=== PATIENT | male | born 1970 | race Caucasian/White ===

== ENCOUNTER 2017-01-27 12:58 | Emergency (ER) | payer SELFPAY ==
[~2017-01-27] VITALS: Ht 188 cm; Wt 99.3 kg
[~2017-01-27 12:58] MED LIST: LEVO25TA5 PO
[2017-01-27] MEDS ORDERED: KETOROLAC TROMETHAMINE 30 MG/ML VIAL IV STA (13:01)
[2017-01-27] MEDS ORDERED: ONDANSETRON INJ 2 MG/ML 2 ML VIAL IV STA (13:01)
[2017-01-27] MEDS ORDERED: FENTANYL CITRATE INJ 50 MCG/1 ML 2 ML VIAL IV STA (13:01)
[2017-01-27] MEDS ORDERED: SODIUM CHLORIDE 0.9% 1000ML 1,000 ML IV STA (13:01)
[2017-01-27 13:09] VITALS: TEMP 36.4; Ht 188 cm; Wt 99.3 kg
[2017-01-27 13:53] LABS: BASO % 0.3 %; BASO ABS # 0.02 K/uL (0-0.2); COMPLETE YES; EOS % 1.7 %; HEMATOCRIT 36.9 % (42-52); IG% 0.3 %; LYMPH % 21.1 %; LYMPH ABS # 1.26 K/uL (1.2-3.4); MEAN CELL VOLUME 103.7 fL (80-100); MEAN CORPUSCULAR HEMOGLOBIN 34.8 pg (25-34); MEAN CORPUSCULAR HGB CONC 33.6 g/dl (32-36); MEAN PLATELET VOLUME 9.4 fL (7.4-10.4); MONO % 5.7 %; NEUT % 70.9 %; PLATELET COUNT 140 K/uL (130-400); RED BLOOD COUNT 3.56 M/uL (4.7-6.1); WHITE BLOOD COUNT 5.98 K/uL (4.8-10.8)
--- NOTE | 2017-01-27 14:01 | DIAGNOSTIC IMAGING REPORT ---
ABD/PELVIS WITHOUT FOR STONE CT DOSE: 830.73 mGy.cm HISTORY: Flank pain flank pain TECHNIQUE: Multiaxial CT images of the abdomen and pelvis were performed without the use of intravenous and oral contrast according to the standard department stone protocol. A dose lowering technique was utilized adhering to the principles of ALARA. COMPARISON STUDY: 08/27/2014 FINDINGS: Mild bibasilar atelectatic/interstitial change. Liver spleen and pancreas are unremarkable. Bowel pattern is nonobstructive. Right kidney is negative for hydronephrosis. Gallbladder is moderately contracted. There is mild left hydroureteronephrosis. There is a 4 mm obstructing calculus mid left ureter. The appendix is normal. Bladder is midline. There are no contained calcifications. IMPRESSION: 1.. 4 mm obstructing calculus mid left ureter. 2. Mild left hydroureteronephrosis. 3. Study is otherwise negative. The above report was generated using voice recognition software. It may contain grammatical, syntax or spelling errors. Electronically signed by: Brody Jaffe M.D. 01/27/2017 2:00 PM Dictated Date/Time: 01/27/2017 1:56 PM
[2017-01-27 14:10] LABS: BUN/CREATININE RATIO 8.2 (10-20); CALCIUM 8.2 mg/dl (8.5-10.1); CREATININE 1.7 mg/dl (0.60-1.40); POTASSIUM 3.3 mmol/L (3.5-5.1)
[2017-01-27] MEDS ORDERED: TAMS0.4C38 PO (15:42)
[2017-01-27] MEDS ORDERED: OXYC-57 PO (15:42)
--- NOTE | 2017-01-27 15:43 | EMERGENCY ROOM VISIT NOTE ---
History Report prepared by Stan: Josiane Watson Under the Supervision of: Dr. Marco A Brito D.O. First contact with patient: 12:59 Stated Complaint: ABDOMINAL PAIN History of Present Illness The patient is a 46 year old male who presents to the Emergency Room with complaints of worsening LLQ pain starting this morning. He presents to the ED by EMS. He woke up around 0800 and had some discomfort. The pain worsened as he went about his daily routine. He also reports left testicle pain. He has a history of kidney stones which are normally on his right side. He does not have any other symptoms of kidney stones. Source of History: patient Onset: this morning Position: abdomen (LLQ) Quality: other (pain) Timing: worsening Note: Pt reports left testicle pain, left groin pain. Review of Systems See HPI for pertinent positives & negatives. A total of 10 systems reviewed and were otherwise negative. Past Medical & Surgical Medical Problems: (1) Back pain (2) Forearm laceration (3) Hypothyroidism (4) Pain, dental (5) Ureteral colic Family History FH: cancer FH: diabetes mellitus FH: heart disease FH: hypertension Social History Smoking Status: Never Smoker Alcohol Use: none Drug Use: none Marital Status: single Occupation Status: employed Current/Historical Medications Scheduled Levothyroxine Sodium (Levothyroxine Sodium), 25 MCG PO DAILY Tamsulosin Hcl (Flomax), 0.4 MG PO HS Scheduled PRN Oxycodone/Acetaminophen 5MG/325MG (Percocet 5MG/325MG), 1 TAB PO Q6H PRN for Pain Allergies Coded Allergies: No Known Allergies (Unverified , 03/13/16) Physical Exam Vital Signs Date Time Temp Pulse Resp B/P (MAP) Pulse Ox O2 Delivery O2 Flow Rate FiO2 01/27/17 16:25 60 15 143/87 96 01/27/17 15:17 58 12 122/78 95 Room Air 01/27/17 13:52 57 18 122/78 93 Room Air 01/27/17 13:09 36.4 67 18 123/77 98 Room Air 01/27/17 13:07 67 Physical Exam CONSTITUTIONAL/VITAL SIGNS: Reviewed / noted above. GENERAL: Non-toxic in appearance. INTEGUMENTARY: Warm, dry, and [place]. HEAD: Normocephalic. EYES: without scleral icterus or trauma. ENT/OROPHARYNX: clear and moist. LYMPHADENOPATHY/NECK: Is supple without lymphadenopathy or meningismus. RESPIRATORY: Lungs clear and equal. CARDIOVASCULAR: Regular rate and rhythm. GI/ABDOMEN: Soft with LLQ tenderness to palpation. No organomegaly or pulsatile mass. No rebound or guarding. Normal bowel sounds. : Left groin and left testicle tenderness to palpation. EXTREMITIES: Warm and well perfused. BACK: No CVA tenderness. NEUROLOGICAL: Intact without focal deficits. PSYCHIATRIC: normal affect. MUSCULOSKELETAL: Normally developed with good muscle tone. Medical Decision & Procedures ER Provider Diagnostic Interpretation: Radiology results as stated below per my review and radiologist interpretation: ABD/PELVIS WITHOUT FOR STONE CT DOSE: 830.73 mGy.cm HISTORY: Flank pain flank pain TECHNIQUE: Multiaxial CT images of the abdomen and pelvis were performed without the use of intravenous and oral contrast according to the standard department stone protocol. A dose lowering technique was utilized adhering to the principles of ALARA. COMPARISON STUDY: 08/27/2014 FINDINGS: Mild bibasilar atelectatic/interstitial change. Liver spleen and pancreas are unremarkable. Bowel pattern is nonobstructive. Right kidney is negative for hydronephrosis. Gallbladder is moderately contracted. There is mild left hydroureteronephrosis. There is a 4 mm obstructing calculus mid left ureter. The appendix is normal. Bladder is midline. There are no contained calcifications. IMPRESSION: 1.. 4 mm obstructing calculus mid left ureter. 2. Mild left hydroureteronephrosis. 3. Study is otherwise negative. The above report was generated using voice recognition software. It may contain grammatical, syntax or spelling errors. Electronically signed by: Brody Jaffe M.D. 01/27/2017 2:00 PM Dictated Date/Time: 01/27/2017 1:56 PM Laboratory Results 01/27/17 13:30 Red Blood Count 3.56, Mean Corpuscular Volume 103.7, Mean Corpuscular Hemoglobin 34.8, Mean Corpuscular Hemoglobin Concent 33.6, Mean Platelet Volume 9.4, Neutrophils (%) (Auto) 70.9, Lymphocytes (%) (Auto) 21.1, Monocytes (%) ( Auto) 5.7, Eosinophils (%) (Auto) 1.7, Basophils (%) (Auto) 0.3, Neutrophils # ( Auto) 4.24, Lymphocytes # (Auto) 1.26, Monocytes # (Auto) 0.34, Eosinophils # ( Auto) 0.10, Basophils # (Auto) 0.02 01/27/17 13:30 Test 01/27/17 13:30 White Blood Count 5.98 K/uL (4.8-10.8) Red Blood Count 3.56 M/uL (4.7-6.1) Hemoglobin 12.4 g/dL (14.0-18.0) Hematocrit 36.9 % (42-52) Mean Corpuscular Volume 103.7 fL (80-100) Mean Corpuscular Hemoglobin 34.8 pg (25-34) Mean Corpuscular Hemoglobin Concent 33.6 g/dl (32-36) Platelet Count 140 K/uL (130-400) Mean Platelet Volume 9.4 fL (7.4-10.4) Neutrophils (%) (Auto) 70.9 % Lymphocytes (%) (Auto) 21.1 % Monocytes (%) (Auto) 5.7 % Eosinophils (%) (Auto) 1.7 % Basophils (%) (Auto) 0.3 % Neutrophils # (Auto) 4.24 K/uL (1.4-6.5) Lymphocytes # (Auto) 1.26 K/uL (1.2-3.4) Monocytes # (Auto) 0.34 K/uL (0.11-0.59) Eosinophils # (Auto) 0.10 K/uL (0-0.5) Basophils # (Auto) 0.02 K/uL (0-0.2) RDW Standard Deviation 49.7 fL (36.4-46.3) RDW Coefficient of Variation 13.1 % (11.5-14.5) Immature Granulocyte % (Auto) 0.3 % Immature Granulocyte # (Auto) 0.02 K/uL (0.00-0.02) Anion Gap 8.0 mmol/L (3-11) Est Creatinine Clear Calc Drug Dose 67.7 ml/min Estimated GFR () 54.5 Estimated GFR (Non- 47.0 BUN/Creatinine Ratio 8.2 (10-20) Calcium Level 8.2 mg/dl (8.5-10.1) Total Bilirubin 0.6 mg/dl (0.2-1) Direct Bilirubin 0.1 mg/dl (0-0.2) Aspartate Amino Transf (AST/SGOT) 53 U/L (15-37) Alanine Aminotransferase (ALT/SGPT) 40 U/L (12-78) Alkaline Phosphatase 43 U/L (45-117) Total Protein 6.5 gm/dl (6.4-8.2) Albumin 3.4 gm/dl (3.4-5.0) Lipase 133 U/L (73-393) Laboratory results as stated above per my review. Medications Administered Medications (Trade) Dose Ordered Sig/Dashawn Route Start Time Stop Time Status Last Admin Dose Admin Sodium Chloride 1,000 ml @ 999 mls/hr Q1H1M STAT IV 01/27/17 13:01 01/27/17 14:01 DC 01/27/17 13:25 999 MLS/HR Fentanyl Citrate (Fentanyl Inj) 100 mcg NOW STAT IV 01/27/17 13:01 01/27/17 13:02 DC 01/27/17 13:24 100 MCG Ondansetron HCl (Zofran Inj) 4 mg NOW STAT IV 01/27/17 13:01 01/27/17 13:02 DC 01/27/17 13:25 4 MG Ketorolac Tromethamine (Toradol Inj) 30 mg NOW STAT IV 01/27/17 13:01 01/27/17 13:02 DC 01/27/17 13:25 30 MG Tamsulosin HCl (Flomax Cap) 0.4 mg NOW ONCE PO 01/27/17 15:45 01/27/17 15:46 DC 01/27/17 16:15 0.4 MG ED Course 1301: Toradol Inj 30 mg IV, Zofran Inj 4 mg IV, Fentanyl Citrate 100 mcg IV, NSS 1000 ml @ 999 mls/hr IV. 1309: Previous medical records were reviewed. The patient was evaluated in room B9. A complete history and physical examination was performed. 1545: Flomax Cap 0.4 mg PO. 1551: On reevaluation, the patient is resting comfortably. I discussed the results and findings with the patient. He verbalized agreement of the treatment plan. He was discharged home. Medical Decision Differential considered: pancreatitis, hepatitis, or acute cholecystitis, AAA, UTI, pyelonephritis, kidney stones, appendicitis, diverticulitis, shingles, bowel obstruction mesenteric ischemia, intussusception,hernia, testicular torsion. Is a 46-year-old male who presents to the ED with a chief complaint of left- sided abdominal pain that radiates into his testicle and groin. The patient states that the symptoms started around 8 AM this morning. He does report a history of kidney stones but states this feels different. His physical exam revealed some tenderness to palpation of the left lower quadrant as well as left groin and left testicle. He is no obvious swelling or abnormality related to the testicle. A CT scan of the abdomen pelvis reveals a 4 mm left mid ureteral calculus with some hydronephrosis. The CBC is unremarkable. Creatinine is 1.7. The patient was treated with IV fluids, IV Toradol and IV fentanyl. He was given IV fentanyl by EMS as well. On reassessment, the patient is feeling much better. His pain is a 2 out of 10. He was told the results. He is felt to be stable for discharge and outpatient follow-up. He was discharged on Flomax as well as Percocet. Urine strainer was provided. Medication Reconcilliation Current Medication List: was personally reviewed by me Blood Pressure Screening Patient's blood pressure: Normal blood pressure Blood pressure disposition: Did not require urgent referral Impression Primary Impression: Renal colic on left side Additional Impression: Ureteral stone with hydronephrosis Scribe Attestation The scribe's documentation has been prepared under my direction and personally reviewed by me in its entirety. I confirm that the note above accurately reflects all work, treatment, procedures, and medical decision making performed by me. Departure Information Dispostion Home / Self-Care Prescriptions Tamsulosin Hcl (FLOMAX) 0.4 Mg Cap 0.4 MG PO HS, #10 CAP Prov: Marco A Brito D.O. 01/27/17 Oxycodone/Acetaminophen 5MG/325MG (PERCOCET 5MG/325MG) Tab 1 TAB PO Q6H Y for Pain, #20 TAB Prov: Marco A Brito D.O. 01/27/17 Referrals Bello Marks M.D. (PCP) Additional Instructions Strain urine for stone. Percocet as prescribed. No driving within 6 hours of use. Do not take additional Tylenol while taking Percocet. Flomax as prescribed. Drink plenty of fluids. Follow-up with your doctor for recheck in 3-5 days if symptoms persist. Return here for severe worsening or new concerns. Problem Qualifiers
[2017-01-27] MEDS ORDERED: TAMSULOSIN HCL 0.4 MG CAP PO ONE (15:45)
[2017-01-27 16:25] VITALS: BP 143/87; PULSE 60; O2SAT 96
== END 2017-01-27 16:25 | disposition home or self-care (01) ==
LOC: EDBD 12:58 → C.EDB 12:59
DX: N23 Unspecified renal colic (principal); N13.2 Hydronephrosis with renal and ureteral calculous obstruction; E03.9 Hypothyroidism, unspecified; Z83.3 Family history of diabetes mellitus; Z82.49 Family history of ischemic heart disease and other diseases of the circulatory system

== ENCOUNTER 2017-02-01 14:57 | Emergency (ER) | payer SELFPAY ==
[~2017-02-01] VITALS: Ht 190.5 cm; Wt 100.0 kg
[~2017-02-01 14:57] MED LIST changes: +OXYC-57 PO; +TAMS0.4C38 PO
[2017-02-01 15:00] VITALS: TEMP 36.5; Ht 190.5 cm; Wt 100.0 kg
[2017-02-01] MEDS ORDERED: RXC/5 PO (15:05)
[2017-02-01] MEDS ORDERED: FLM4 PO (15:05)
[2017-02-01] MEDS ORDERED: TRAMADOL HCL 50 MG TAB PO STA ×2 (15:21→17:30)
[2017-02-01] MEDS ORDERED: SODIUM CHLORIDE 0.9% 1000ML 1,000 ML IV STA ×2 (15:21→16:07)
[2017-02-01] MEDS ORDERED: MoRPHine SULFATE 4 MG/ML 1 ML CARP\\VIAL IV STA (15:21)
[2017-02-01] MEDS ORDERED: KETOROLAC TROMETHAMINE 30 MG/ML VIAL IV STA (15:21)
--- NOTE | 2017-02-01 15:21 | EMERGENCY ROOM VISIT NOTE ---
History Report prepared by Stan: Benny Spain Under the Supervision of: Dr. Ky Huerta M.D. First contact with patient: 15:00 Chief Complaint: GROIN PAIN Stated Complaint: GROIN PAIN History of Present Illness The patient is a 46 year old white male with a past medical history of hypothyroidism and kidney stones who presents to the ED with a cc of worsening left groin pain beginning 2 hours ago. Positive left testicle pain, low back pain, hot and cold flashes. Negative urinary hesitancy, fullness, hematuria, testicle swelling, penile drainage, recent trauma. The patient says that his symptoms feel similar to his previous kidney stones, and he thinks that he passed this current kidney stone. He notes that he took 5 mg of oxycodone as well as Flexeril, but pain kept worsening and is still bad. Patient chews tobacco. Source of History: patient Onset: 2 hours ago Position: other (left groin) Quality: other (similar to previous kidney stones) Timing: worsening Associated Symptoms: + back pain (low), No urinary symptoms Note: Associated symptoms: Hot and cold flash, left testicle pain. Denies testicle swelling, penile drainage. Review of Systems See HPI for pertinent positives and negatives. A total of ten systems were reviewed and were otherwise negative. Past Medical & Surgical Medical Problems: (1) Back pain (2) Forearm laceration (3) Hypothyroidism (4) Pain, dental (5) Ureteral colic Family History FH: cancer FH: diabetes mellitus FH: heart disease FH: hypertension Social History Smoking Status: Never Smoker Smokeless Tobacco Use: Yes Alcohol Use: none Drug Use: none Marital Status: single Occupation Status: unemployed Current/Historical Medications Scheduled Levothyroxine Sodium (Levothyroxine Sodium), 25 MCG PO DAILY Ondasetron Odt (Zofran Odt), 4 MG SL Q6H Tamsulosin HCl (Tamsulosin HCl), 0.4 MG PO DAILY Tamsulosin Hcl (Flomax), 1 CAP PO DAILY Scheduled PRN Oxycodone HCl (Oxycodone HCl), 5 MG PO Q6 PRN for Pain Allergies Coded Allergies: No Known Allergies (Unverified , 02/01/17) Physical Exam Vital Signs Date Time Temp Pulse Resp B/P (MAP) Pulse Ox O2 Delivery O2 Flow Rate FiO2 02/01/17 17:51 66 18 145/88 97 9/19/17 16:23 67 18 136/91 96 Room Air 02/01/17 15:00 36.5 73 18 135/109 99 Room Air Physical Exam GENERAL: Awake, alert, well-appearing, NAD HENT: Normocephalic, atraumatic. EYES: Sclera non-icteric. RESPIRATORY: CTAB, no rhonchi, wheezing, crackles CARDIAC: RRR, no MRG ABDOMEN: Soft, BS+. Mild left-sided flank pain. No pain in peroneum area, no crepitus. MSK: Left-sided CVA TTP. No chest wall TTP, no LE edema : Mild left testicular pain w/o fluctuance, redness, or scrotal swelling. No masses. NEURO: GCS 15, CN 2-12 intact, moves all 4s on command SKIN: Areas of skin without pigment consistent with prior hx of vitiligo. Medical Decision & Procedures ER Provider Diagnostic Interpretation: CT: Radiology results as stated below per my review and radiologist interpretation ABD/PELVIS WITHOUT FOR STONE CT DOSE: 1343.93 mGy.cm HISTORY: Flank pain L ureteral stones, flank pain TECHNIQUE: Multiaxial CT images of the abdomen and pelvis were performed without the use of intravenous and oral contrast according to the standard department stone protocol. A dose lowering technique was utilized adhering to the principles of ALARA. COMPARISON STUDY: 01/27/2017 FINDINGS: Mild bibasilar dependent atelectasis. Configuration of liver spleen and pancreas are unremarkable. Right kidney is negative for calcification. Moderate left renal hydronephrosis and hydroureter. The obstructing calculus of the mid left ureter has now migrated distally to the distal left ureter immediately proximal to the left ureterovesical junction. Current dimensions are 5 mm. No additional urinary tract calcifications. Right ureter shows no evidence for distention. Bowel pattern is nonobstructive. IMPRESSION: 1. Previously described obstructing calculus mid left ureter has passed distally to the distal left ureter. 2. Stable to minimally increased left hydroureteronephrosis. The above report was generated using voice recognition software. It may contain grammatical, syntax or spelling errors. Electronically signed by: Brody Jaffe M.D. 02/01/2017 4:25 PM Dictated Date/Time: 02/01/2017 4:22 PM Laboratory Results 02/01/17 15:50 Red Blood Count 3.87, Mean Corpuscular Volume 102.8, Mean Corpuscular Hemoglobin 35.4, Mean Corpuscular Hemoglobin Concent 34.4, Mean Platelet Volume 9.1, Neutrophils (%) (Auto) 69.6, Lymphocytes (%) (Auto) 20.8, Monocytes (%) ( Auto) 6.6, Eosinophils (%) (Auto) 2.3, Basophils (%) (Auto) 0.5, Neutrophils # ( Auto) 3.98, Lymphocytes # (Auto) 1.19, Monocytes # (Auto) 0.38, Eosinophils # ( Auto) 0.13, Basophils # (Auto) 0.03 02/01/17 15:50 Test 02/01/17 15:50 02/01/17 16:55 White Blood Count 5.72 K/uL (4.8-10.8) Red Blood Count 3.87 M/uL (4.7-6.1) Hemoglobin 13.7 g/dL (14.0-18.0) Hematocrit 39.8 % (42-52) Mean Corpuscular Volume 102.8 fL (80-100) Mean Corpuscular Hemoglobin 35.4 pg (25-34) Mean Corpuscular Hemoglobin Concent 34.4 g/dl (32-36) Platelet Count 148 K/uL (130-400) Mean Platelet Volume 9.1 fL (7.4-10.4) Neutrophils (%) (Auto) 69.6 % Lymphocytes (%) (Auto) 20.8 % Monocytes (%) (Auto) 6.6 % Eosinophils (%) (Auto) 2.3 % Basophils (%) (Auto) 0.5 % Neutrophils # (Auto) 3.98 K/uL (1.4-6.5) Lymphocytes # (Auto) 1.19 K/uL (1.2-3.4) Monocytes # (Auto) 0.38 K/uL (0.11-0.59) Eosinophils # (Auto) 0.13 K/uL (0-0.5) Basophils # (Auto) 0.03 K/uL (0-0.2) RDW Standard Deviation 49.5 fL (36.4-46.3) RDW Coefficient of Variation 13.2 % (11.5-14.5) Immature Granulocyte % (Auto) 0.2 % Immature Granulocyte # (Auto) 0.01 K/uL (0.00-0.02) Anion Gap 7.0 mmol/L (3-11) Est Creatinine Clear Calc Drug Dose 64.2 ml/min Estimated GFR () 54.5 Estimated GFR (Non- 47.0 BUN/Creatinine Ratio 7.4 (10-20) Calcium Level 9.1 mg/dl (8.5-10.1) Total Bilirubin 0.8 mg/dl (0.2-1) Direct Bilirubin 0.1 mg/dl (0-0.2) Aspartate Amino Transf (AST/SGOT) 47 U/L (15-37) Alanine Aminotransferase (ALT/SGPT) 38 U/L (12-78) Alkaline Phosphatase 51 U/L (45-117) Total Protein 7.6 gm/dl (6.4-8.2) Albumin 4.0 gm/dl (3.4-5.0) Lipase 155 U/L (73-393) Urine Color YELLOW Urine Appearance CLEAR (CLEAR) Urine pH 6.0 (4.5-7.5) Urine Specific [place] 1.020 (1.000-1.030) Urine Protein NEG (NEG) Urine Glucose (UA) NEG (NEG) Urine Ketones NEG (NEG) Urine Occult Blood 3+ (NEG) Urine Nitrite NEG (NEG) Urine Bilirubin NEG (NEG) Urine Urobilinogen NEG (NEG) Urine Leukocyte Esterase NEG (NEG) Urine WBC (Auto) 1-5 /hpf (0-5) Urine RBC (Auto) >30 /hpf (0-4) Urine Hyaline Casts (Auto) 0 /lpf (0-5) Urine Epithelial Cells (Auto) 0-5 /lpf (0-5) Urine Bacteria (Auto) NEG (NEG) Laboratory results reviewed by me Medications Administered Medications (Trade) Dose Ordered Sig/Dashawn Route Start Time Stop Time Status Last Admin Dose Admin Sodium Chloride 1,000 ml @ 999 mls/hr Q1H1M STAT IV 02/01/17 15:21 02/01/17 16:21 DC 02/01/17 15:54 999 MLS/HR Morphine Sulfate (MoRPHine SULFATE INJ) 4 mg NOW STAT IV 02/01/17 15:21 02/01/17 15:25 DC 02/01/17 15:55 4 MG Tramadol HCl (Ultram Tab) 50 mg ONE STAT PO 02/01/17 15:21 02/01/17 15:25 DC 02/01/17 15:55 50 MG Ketorolac Tromethamine (Toradol Inj) 30 mg NOW STAT IV 02/01/17 15:21 02/01/17 15:25 DC 02/01/17 15:55 30 MG Sodium Chloride 1,000 ml @ 999 mls/hr Q1H1M STAT IV 02/01/17 16:07 02/01/17 17:07 DC 02/01/17 16:22 999 MLS/HR Acetaminophen/ Hydrocodone Bitart ([place] 5/325mg Home Pack) 1 homepack UD ONCE PO 02/01/17 17:30 02/01/17 17:32 DC 02/01/17 17:42 1 HOMEPACK Tramadol HCl (Ultram Home Pack) 1 homepack UD ONCE PO 02/01/17 17:30 02/01/17 17:32 DC 02/01/17 17:42 1 HOMEPACK ED Course 1513: The patient was evaluated in room B7. A complete history and physical exam was performed. 1: I reevaluated the patient and he is resting. The patient verbally expressed understanding and agreement of the treatment plan. The patient will be discharged. Medical Decision The patient is a 46 year old white male with a past medical history of hypothyroidism and kidney stones who presents to the ED with a cc of worsening left groin pain beginning 2 hours ago. Positive left testicle pain, low back pain, hot and cold flashes. Negative urinary hesitancy, fullness, hematuria, testicle swelling, penile drainage, recent trauma. Differential diagnosis: Etiologies such as renal colic, appendicitis, diverticulitis, mesenteric ischemia, aortic pathology, infections, inflammatory bowel disease, PUD, biliary pathology, UTI, as well as others were entertained. Patient seen and evaluated at the bedside. Patient had signed symptoms consistent with his prior irregular Rat[place] and nephrolithiasis. Patient is CT used to show movement or distally of the stone. Patient did have mild hydroureteronephrosis. Patient's kidney function is at his baseline from when he was here prior. Given the fact that he has had subsequent migration with a consistent creatinine at this point no further intervention. Patient does have history of insurance issues and thus is unable to follow up with the urologist. He was told he needs to maintain taking his Flomax on a daily basis and not just once in a while. Patient was given additional pain control. Patient given follow-up, discharge, and return cautions. Patient agreed w/ POC and patient was safely discharged home. Medication Reconcilliation Current Medication List: was personally reviewed by me Blood Pressure Screening Patient's blood pressure: Normal blood pressure Impression Primary Impression: Ureterolithiasis Additional Impressions: Encounter for smoking cessation counseling Flank pain Scribe Attestation The scribe's documentation has been prepared under my direction and personally reviewed by me in its entirety. I confirm that the note above accurately reflects all work, treatment, procedures, and medical decision making performed by me. Departure Information Dispostion Home / Self-Care Prescriptions Tamsulosin Hcl (FLOMAX) 0.4 Mg Cap 1 CAP PO DAILY for 30 Days, #30 CAP 0 Refills Prov: Ky Huerta M.D. 02/01/17 Ondasetron Odt (ZOFRAN ODT) 4 Mg Tab 4 MG SL Q6H for Nausea, #6 TAB Prov: Ky Huerta M.D. 02/01/17 Referrals Bello Marks M.D. (PCP) Francois Ibrahim M.D. Patient Instructions Kidney Stones, Kidney Stones - [facility], Kidney Stones Expectant Therapy, Kidney Stones Prevent, Kidney Stones Tx Meds, My [facility] Additional Instructions Please return to the emergency department if you have worsening or recurrent symptoms not amenable to at-home treatment. Please call for a follow-up appointment with her primary care physician. Please take your medications as prescribed. If you have other concerns and/or complaints please feel free to also call your primary care physician's office or return the ED for further evaluation, management, and treatment. You received narcotic or benzodiazepene medication while in the emergency room today. This is an addictive medication that may cause drowziness as well as constipation. Do not drive, operate heavy machinery, or drink alcohol under the influence of this medication. You may take 600 mg Ibuprofen every 6 hours as needed for pain with food for no more than 2 consecutive days. You may take tylenol 1000mg every 6 hours as needed for pain. You may take motrin and tylenol separately or at the same time. You have been examined and treated today on an emergency basis only. This is not a substitute for, or an effort to provide, complete comprehensive medical care. It is impossible to recognize and treat all injuries or illnesses in a single emergency department visit. It is therefore important that you follow up closely with [facility]. Call as soon as possible for an appointment. Thank you for your time and consideration. I look forward to speaking with you again soon. Please don't hesitate to call us if you have any questions. Work Instructions Return To Work: 1 day Problem Qualifiers
[2017-02-01 16:02] LABS: BASO % 0.5 %; BASO ABS # 0.03 K/uL (0-0.2); COMPLETE YES; EOS % 2.3 %; HEMATOCRIT 39.8 % (42-52); IG% 0.2 %; LYMPH % 20.8 %; LYMPH ABS # 1.19 K/uL (1.2-3.4); MEAN CELL VOLUME 102.8 fL (80-100); MEAN CORPUSCULAR HEMOGLOBIN 35.4 pg (25-34); MEAN CORPUSCULAR HGB CONC 34.4 g/dl (32-36); MEAN PLATELET VOLUME 9.1 fL (7.4-10.4); MONO % 6.6 %; NEUT % 69.6 %; PLATELET COUNT 148 K/uL (130-400); RED BLOOD COUNT 3.87 M/uL (4.7-6.1); WHITE BLOOD COUNT 5.72 K/uL (4.8-10.8)
[2017-02-01 16:18] LABS: BUN/CREATININE RATIO 7.4 (10-20); CALCIUM 9.1 mg/dl (8.5-10.1); CREATININE 1.7 mg/dl (0.60-1.40); POTASSIUM 3.9 mmol/L (3.5-5.1)
--- NOTE | 2017-02-01 16:27 | DIAGNOSTIC IMAGING REPORT ---
ABD/PELVIS WITHOUT FOR STONE CT DOSE: 1343.93 mGy.cm HISTORY: Flank pain L ureteral stones, flank pain TECHNIQUE: Multiaxial CT images of the abdomen and pelvis were performed without the use of intravenous and oral contrast according to the standard department stone protocol. A dose lowering technique was utilized adhering to the principles of ALARA. COMPARISON STUDY: 01/27/2017 FINDINGS: Mild bibasilar dependent atelectasis. Configuration of liver spleen and pancreas are unremarkable. Right kidney is negative for calcification. Moderate left renal hydronephrosis and hydroureter. The obstructing calculus of the mid left ureter has now migrated distally to the distal left ureter immediately proximal to the left ureterovesical junction. Current dimensions are 5 mm. No additional urinary tract calcifications. Right ureter shows no evidence for distention. Bowel pattern is nonobstructive. IMPRESSION: 1. Previously described obstructing calculus mid left ureter has passed distally to the distal left ureter. 2. Stable to minimally increased left hydroureteronephrosis. The above report was generated using voice recognition software. It may contain grammatical, syntax or spelling errors. Electronically signed by: Brody Jaffe M.D. 02/01/2017 4:25 PM Dictated Date/Time: 02/01/2017 4:22 PM
[2017-02-01 17:10] LABS: URINE APPEARANCE CLEAR (CLEAR); URINE BILIRUBIN NEG (NEG); URINE COLOR YELLOW; URINE EPITHELIAL CELL AUTO 0-5 /lpf (0-5); URINE NITRITE NEG (NEG); UROBILINOGEN NEG (NEG); ZZUR CULT IF INDIC CLEAN CATCH NO
[2017-02-01 17:11] LABS: MANUAL MICROSCOPIC REQUIRED? NO; REVIEW REQ? NO
[2017-02-01] MEDS ORDERED: ONDA4TAB10 SL (17:25)
[2017-02-01] MEDS ORDERED: TAMS0.4C38 PO (17:25)
[2017-02-01] MEDS ORDERED: OXYC1TAB3 PO (17:25)
[2017-02-01] MEDS ORDERED: ACET-749 PO (17:27)
[2017-02-01] MEDS ORDERED: TRAMADOL HCL 50 MG HOME PACK PO ONE (17:30)
[2017-02-01] MEDS ORDERED: HYDROCODONE/ACETAMI 10/325 TAB PO STA (17:30)
[2017-02-01] MEDS ORDERED: NORCO 5/325MG HOME PACK PO ONE (17:30)
[2017-02-01 17:51] VITALS: BP 145/88; PULSE 66; O2SAT 97
== END 2017-02-01 17:52 | disposition home or self-care (01) ==
LOC: EDBD 14:57 → C.EDB 14:59
DX: N20.1 Calculus of ureter (principal); N13.30 Unspecified hydronephrosis; R10.9 Unspecified abdominal pain; Z79.899 Other long term (current) drug therapy; F17.220 Nicotine dependence, chewing tobacco, uncomplicated

== ENCOUNTER 2017-02-10 22:27 | Inpatient (IN) | payer SELFPAY ==
[~2017-02-10] VITALS: Ht 190.5 cm; Wt 91.6 kg
[~2017-02-10 22:27] MED LIST changes: +FLM4 PO; +ONDA4TAB10 SL; -OXYC-57 PO; +RXC/5 PO
[2017-02-10] MEDS ORDERED: ONDANSETRON INJ 2 MG/ML 2 ML VIAL IV STA (22:53)
[2017-02-10] MEDS ORDERED: MoRPHine SULFATE 10 MG/ML CARP/VIAL IV STA (22:53)
[2017-02-10 23:12] LABS: MANUAL MICROSCOPIC REQUIRED? NO; REVIEW REQ? NO; URINE APPEARANCE CLEAR (CLEAR); URINE BILIRUBIN NEG (NEG); URINE COLOR YELLOW; URINE EPITHELIAL CELL AUTO 20-30 /lpf (0-5); URINE NITRITE NEG (NEG); URINE SPECIFIC GRAVITY 1.023 (1.000-1.030); UROBILINOGEN NEG (NEG); ZZUR CULT IF INDIC CLEAN CATCH NO
[2017-02-10 23:13] LABS: BASO % 0.2 %; BASO ABS # 0.02 K/uL (0-0.2); COMPLETE YES; EOS % 1.7 %; HEMATOCRIT 40.4 % (42-52); IG% 0.1 %; LYMPH % 13.1 %; LYMPH ABS # 1.23 K/uL (1.2-3.4); MEAN CELL VOLUME 101.5 fL (80-100); MEAN CORPUSCULAR HEMOGLOBIN 34.2 pg (25-34); MEAN CORPUSCULAR HGB CONC 33.7 g/dl (32-36); MEAN PLATELET VOLUME 9.2 fL (7.4-10.4); MONO % 6.1 %; NEUT % 78.8 %; PLATELET COUNT 152 K/uL (130-400); RED BLOOD COUNT 3.98 M/uL (4.7-6.1); WHITE BLOOD COUNT 9.39 K/uL (4.8-10.8)
[2017-02-10 23:39] LABS: BUN/CREATININE RATIO 7.2 (10-20); CREATININE 2.1 mg/dl (0.60-1.40); POTASSIUM 3.9 mmol/L (3.5-5.1)
[2017-02-10 23:41] LABS: ALB/GLOB RATIO 1.1 (0.9-2)
[2017-02-10] MEDS ORDERED: TRAM-10 PO (23:45)
[2017-02-10] MEDS ORDERED: ONDA4TAB10 SL (23:45)
[2017-02-11] VITALS (9 sets, daily range): BP systolic 131–154; BP diastolic 86–99; PULSE 60–78; TEMP 36.3–37; O2SAT 93–96; Ht 190.5 cm; Wt 91.6 kg
[2017-02-11] MEDS ORDERED: ALUMINUM/MAGNESIUM/SIMETH (MAALOX MAX) 30 ML UDC PO PRN (01:45)
[2017-02-11] MEDS ORDERED: MAGNESIUM HYDROXIDE SUSP 30 ML UDC PO PRN (01:45)
[2017-02-11] MEDS ORDERED: ACETAMINOPHEN 325 MG TAB PO PRN (01:45)
[2017-02-11] MEDS ORDERED: SODIUM CHLORIDE 0.9% 1000ML 1,000 ML IV STA (02:01)
--- NOTE | 2017-02-11 02:06 | History and Physical ---
History & Physical Date & Time of Service: Feb 11, 2017 at 01:51 Chief Complaint: Kidney Stone On Lf Side Primary Care Physician: Bello Marks M.D. History of Present Illness Source: patient, family (mother) The patient is a nick 46 year old male with a history of hypothyroidism and renal stones who presents with acute abdominal pain. The patient reports having sudden onset abdominal pain at 4am yesterday. He describes the pain as sharp in the LLQ and radiates in to the leg groin and testicle. He denies dysuria or urinary frequency. States that his urine has appeared more concentrated but not grossly bloody. He denies any accompanying back pain. He has not had fevers, chills or sweats. He denies, nausea or vomiting. He denies any diarrhea, constipation or changes in stooling. This patient has a known renal stone on the left side. He presented to [facility] on 01/27 with similar pain. At that time a CT scan was done showing a 0.4 cm left ureteral stone with mild hydronephrosis. He was offered admission and evaluation but declined due to lack of insurance and was discharged with pain medication, and Flomax. He returned again on 02/01 with similar complaints and repeat CT showed migration to distal ureter. He was discharged home at that time as well. Tonight in the ED, renal ultrasound reported renal stone in the left UVJ and size was reported as 1.1 cm. He Cr was noted to be 2.1 (at his previous visits this month they were 1.7) and Cr last year was 1.1). He is being admitted for evaluation and treatment of renal stone. The patient states that he does not have insurance and as a result has not been taking his thyroid medication because he cannot afford it. Past Medical/Surgical History Medical Problems: (1) Back pain Status: Resolved (2) Forearm laceration Status: Resolved (3) Hypothyroidism Status: Chronic (4) Pain, dental Status: Resolved (5) Ureteral colic Status: Resolved Family History FH: cancer FH: diabetes mellitus FH: heart disease FH: hypertension Social History Smoking Status: Never Smoker Smokeless Tobacco Use: Yes (Chewing tobacco daily) Alcohol Use: none Drug Use: none Marital Status: single Housing status: lives with family Occupational Status: unemployed Multi-Drug Resistant Organisms History of MDRO: No Allergies Coded Allergies: No Known Allergies (Unverified , 02/10/17) Home Medications Scheduled Levothyroxine Sodium (Levothyroxine Sodium), 25 MCG PO DAILY Tamsulosin HCl (Tamsulosin HCl), 0.4 MG PO DAILY Scheduled PRN Ondasetron Odt (Zofran Odt), 4 MG SL Q6H PRN for Nausea or Vomiting Oxycodone HCl (Oxycodone HCl), 5 MG PO Q6 PRN for Pain Tramadol (Ultram), 50 MG PO Q8H PRN for Pain Review of Systems Constitutional: No fever, No chills, No sweats ENT: No unusual epistaxis, No nasal symptoms, No sore throat Respiratory: No cough, No sputum, No wheezing Cardiovascular: No chest pain, No claudication, No palpitations Abdomen: + pain, No nausea, No vomiting Musculoskeletal: No joint pain, No muscle pain, No swelling Genitourinary - Male: No hematuria, No dysuria, No urinary frequency Neurologic: No weakness, No numbness/tingling, No vertigo Psychiatric: No depression symptoms, No anxiety, No insomnia Endocrine: No fatigue, No excessive urination Hematologic / Lymphatic: No clotting problems, No swollen lymph nodes, No night sweats Integumentary: No rash, No new/changing skin lesions, No color change Physical Exam Vital Signs Date Time Temp Pulse Resp B/P (MAP) Pulse Ox O2 Delivery O2 Flow Rate FiO2 02/11/17 00:52 37.1 67 18 131/94 93 Room Air 02/10/17 23:00 64 02/10/17 22:35 36.4 69 16 151/97 96 Room Air General Appearance: WD/WN, no apparent distress Head: normocephalic, atraumatic Eyes: normal inspection, EOMI ENT: hearing grossly normal, pharynx normal Neck: supple, no adenopathy, no JVD Respiratory/Chest: lungs clear, no respiratory distress Cardiovascular: regular rate, rhythm, no gallop, no murmur Abdomen/GI: normal bowel sounds, soft, + pertinent finding (LLQ tenderness, without guarding or rigidity) Back: no CVA tenderness, no muscle spasm Extremities/Musculoskelatal: no calf tenderness, no pedal edema Neurologic/Psych: alert, normal mood/affect, oriented x 3 Skin: normal color, warm/dry, no rash Lymphatic: no adenopathy Diagnostics Laboratory Results Results Past 24 Hours Test 02/10/17 22:50 02/10/17 23:00 Range/Units Urine Color YELLOW Urine Appearance CLEAR CLEAR Urine pH 7.0 4.5-7.5 Urine Specific [place] 1.023 1.000-1.030 Urine Protein NEG NEG Urine Glucose (UA) NEG NEG Urine Ketones NEG NEG Urine Occult Blood 2+ NEG Urine Nitrite NEG NEG Urine Bilirubin NEG NEG Urine Urobilinogen NEG NEG Urine Leukocyte Esterase NEG NEG Urine WBC (Auto) 1-5 0-5 /hpf Urine RBC (Auto) 10-30 0-4 /hpf Urine Hyaline Casts (Auto) 1-5 0-5 /lpf Urine Epithelial Cells (Auto) 20-30 0-5 /lpf Urine Bacteria (Auto) NEG NEG White Blood Count 9.39 4.8-10.8 K/uL Red Blood Count 3.98 4.7-6.1 M/uL Hemoglobin 13.6 14.0-18.0 g/dL Hematocrit 40.4 42-52 % Mean Corpuscular Volume 101.5 80-100 fL Mean Corpuscular Hemoglobin 34.2 25-34 pg Mean Corpuscular Hemoglobin Concent 33.7 32-36 g/dl Platelet Count 152 130-400 K/uL Mean Platelet Volume 9.2 7.4-10.4 fL Neutrophils (%) (Auto) 78.8 % Lymphocytes (%) (Auto) 13.1 % Monocytes (%) (Auto) 6.1 % Eosinophils (%) (Auto) 1.7 % Basophils (%) (Auto) 0.2 % Neutrophils # (Auto) 7.40 1.4-6.5 K/uL Lymphocytes # (Auto) 1.23 1.2-3.4 K/uL Monocytes # (Auto) 0.57 0.11-0.59 K/uL Eosinophils # (Auto) 0.16 0-0.5 K/uL Basophils # (Auto) 0.02 0-0.2 K/uL RDW Standard Deviation 49.6 36.4-46.3 fL RDW Coefficient of Variation 13.2 11.5-14.5 % Immature Granulocyte % (Auto) 0.1 % Immature Granulocyte # (Auto) 0.01 0.00-0.02 K/uL Sodium Level 140 136-145 mmol/L Potassium Level 3.9 3.5-5.1 mmol/L Chloride Level 106 98-107 mmol/L Carbon Dioxide Level 27 21-32 mmol/L Anion Gap 7.0 3-11 mmol/L Blood Urea Nitrogen 15 7-18 mg/dl Creatinine 2.10 0.60-1.40 mg/dl Est Creatinine Clear Calc Drug Dose 52.0 ml/min Estimated GFR () 42.2 Estimated GFR (Non- 36.4 BUN/Creatinine Ratio 7.2 10-20 Random Glucose 94 70-99 mg/dl Calcium Level 10.0 8.5-10.1 mg/dl Total Bilirubin 0.8 0.2-1 mg/dl Aspartate Amino Transf (AST/SGOT) 40 15-37 U/L Alanine Aminotransferase (ALT/SGPT) 39 12-78 U/L Alkaline Phosphatase 56 45-117 U/L Total Protein 8.0 6.4-8.2 gm/dl Albumin 4.2 3.4-5.0 gm/dl Globulin 3.8 2.5-4.0 gm/dl Albumin/Globulin Ratio 1.1 0.9-2 Diagnostic Radiology Left UVJ 1.1 cm stone Hydronephrosis Right kidney normal Impression Assessment and Plan 46 year old male with elevated left obstructing renal stone and JEFF. Our plan for him is as follows: Left renal tract stone with hydronephrosis - NPO - Consult urology - NSS bolus --> follow with NSS + 20 KCl @ 125 ml/hr - Morphine 4 mg q4h Acute Kidney Injury - Cr 2.1; baseline 1.0 - Dehydration vs obstructive - Will fluid challenge as above and re-assess renal function in 12 hours Hypothyroidism - Patient not taking medications - TSH with tomorrow's labs and re-start medication accordingly DVT Prophylaxis - SCD Knee, EUNICE Hose - Encourage ambulation; no indication for pharmacological prophylaxis Code Status - Level I Full Code Disposition - Med/Surg - Patient will require assistance from case management to get insurance Resident Physician Supervision Note: I was present with Dr Gracia during the history and exam. I discussed the case with the resident and agree with the findings and plan as documented in the note. Any exceptions or clarifications are listed here: 46 y/o M Hx hypothyroidism - medical noncompliance - previous ureteral calculi - presenting with L flank/back pain CT reveals 1.1 cm obstructive calculus - UA is (-) - creatinine elevated at 2.1 OE AAO x 3 S1,2 R CTAB NT, ND No CCE P: Aggressive IVF - trend BMP Urology consulted as spontaneous passage is not likely Will check TSH as pt has not complied with Synthroid - restarted Documented By: Tai Leyva Level of Care Med/Surg Resuscitation Status FULL RESUSCITATION VTE Prophylaxis VTE Risk Assessment Done? Y/N: Yes Risk Level: Moderate Given or contraindicated: T.E.D. Stockings, SCD's
[2017-02-11] MEDS ORDERED: POLYETHYLENE (MIRALAX) 17 GM PACK PO PRN (02:30)
[2017-02-11] MEDS: ONDANSETRON INJ 2 MG/ML 2 ML VIAL IV PRN ×2 (02:33→10:35)
[2017-02-11] MEDS: MoRPHine SULFATE 4 MG/ML 1 ML CARP\\VIAL IV PRN ×2 (02:33→10:36)
[2017-02-11] MEDS: NSS + 20MEQ KCL 1000ML 1,000 ML IV SCH ×3 (03:15→18:38)
--- NOTE | 2017-02-11 07:02 | DIAGNOSTIC IMAGING REPORT ---
EXAMINATION: RENAL ULTRASOUND CLINICAL HISTORY: Left ureteral calculus. Evaluate for hydronephrosis. COMPARISON STUDY: CT scan dated 02/01/2017, renal ultrasound dated 03/13/2016 FINDINGS: The right kidney measures 10.6 cm. The left kidney measures 11.5 cm. There is left-sided hydronephrosis. The left ureter is dilated measuring up to 7 mm. There is a suspected calculus at the level the left ureterovesical junction. This measures 1 cm. The left ureteral jet was not visualized. IMPRESSION : 1 cm calculus at the level of the left ureterovesical junction with secondary left-sided hydroureteronephrosis. Electronically signed by: Emiliano Huitron M.D. 02/11/2017 7:01 AM Dictated Date/Time: 02/11/2017 6:59 AM
--- NOTE | 2017-02-11 07:13 | DIAGNOSTIC IMAGING REPORT ---
KUB CLINICAL HISTORY: 46 years-old Male presenting with Left ureteral calculi on previous CTs. TECHNIQUE: Single supine view of the abdomen was obtained. COMPARISON: 03/13/2016. FINDINGS: Previously noted calculus in the region of the distal left ureter remains apparent in the region of the left ureterovesical junction. This has not changed in location. No calcification projects over the renal shadows allowing for mild stool burden in the right colon. No gross pneumoperitoneum. Osseous structures normal. IMPRESSION: 1. Stable location of the distal left ureteral calculus at the left UVJ. Electronically signed by: Griffin Benavides M.D. 02/11/2017 7:12 AM Dictated Date/Time: 02/11/2017 7:10 AM
--- NOTE | 2017-02-11 10:39 | Urology Consultation ---
History General Date of Service: Feb 11, 2017. Primary Care Physician: Bello Marks M.D. History of Present Illness 46 year old male admitted with large left distal ureteral stone. Pt reports history of stones but has been able to pass most on his own. He reports the pain started a few days ago but worsened last night causing intractable pain and nausea. Reviewed KUB and renal u/s images. Appears to have 1 cm obstructing left distal stone causing hydronephrosis. pt continues to have left sided pain. Denies hematuria or bothersome urinary symptoms. White count is normal. Creatinine is elevated -2.10 Afebrile, VSS. Imaging Imaging: KUB, Ultrasound Laboratory Last 24 Hours Test 02/10/17 22:50 02/10/17 23:00 Urine Color YELLOW Urine Appearance CLEAR Urine pH 7.0 Urine Specific [place] 1.023 Urine Protein NEG Urine Glucose (UA) NEG Urine Ketones NEG Urine Occult Blood 2+ Urine Nitrite NEG Urine Bilirubin NEG Urine Urobilinogen NEG Urine Leukocyte Esterase NEG Urine WBC (Auto) 1-5 /hpf Urine RBC (Auto) 10-30 /hpf Urine Hyaline Casts (Auto) 1-5 /lpf Urine Epithelial Cells (Auto) 20-30 /lpf Urine Bacteria (Auto) NEG White Blood Count 9.39 K/uL Red Blood Count 3.98 M/uL Hemoglobin 13.6 g/dL Hematocrit 40.4 % Mean Corpuscular Volume 101.5 fL Mean Corpuscular Hemoglobin 34.2 pg Mean Corpuscular Hemoglobin Concent 33.7 g/dl Platelet Count 152 K/uL Mean Platelet Volume 9.2 fL Neutrophils (%) (Auto) 78.8 % Lymphocytes (%) (Auto) 13.1 % Monocytes (%) (Auto) 6.1 % Eosinophils (%) (Auto) 1.7 % Basophils (%) (Auto) 0.2 % Neutrophils # (Auto) 7.40 K/uL Lymphocytes # (Auto) 1.23 K/uL Monocytes # (Auto) 0.57 K/uL Eosinophils # (Auto) 0.16 K/uL Basophils # (Auto) 0.02 K/uL RDW Standard Deviation 49.6 fL RDW Coefficient of Variation 13.2 % Immature Granulocyte % (Auto) 0.1 % Immature Granulocyte # (Auto) 0.01 K/uL Sodium Level 140 mmol/L Potassium Level 3.9 mmol/L Chloride Level 106 mmol/L Carbon Dioxide Level 27 mmol/L Anion Gap 7.0 mmol/L Blood Urea Nitrogen 15 mg/dl Creatinine 2.10 mg/dl Est Creatinine Clear Calc Drug Dose 52.0 ml/min Estimated GFR () 42.2 Estimated GFR (Non- 36.4 BUN/Creatinine Ratio 7.2 Random Glucose 94 mg/dl Calcium Level 10.0 mg/dl Total Bilirubin 0.8 mg/dl Aspartate Amino Transf (AST/SGOT) 40 U/L Alanine Aminotransferase (ALT/SGPT) 39 U/L Alkaline Phosphatase 56 U/L Total Protein 8.0 gm/dl Albumin 4.2 gm/dl Globulin 3.8 gm/dl Albumin/Globulin Ratio 1.1 Current Inpatient Medications Medications (Trade) Dose Ordered Sig/Dashawn Route Start Time Stop Time Status Last Admin Dose Admin Acetaminophen (Tylenol Tab) 650 mg Q4H PRN PO 02/11/17 01:45 03/13/17 01:44 Al Hydrox/Mg Hydrox/Simethicone (Maalox Max Susp) 15 ml Q4H PRN PO 02/11/17 01:45 03/13/17 01:44 Magnesium Hydroxide (Milk Of Magnesia Susp) 30 ml Q6H PRN PO 02/11/17 01:45 03/13/17 01:44 Polyethylene (Miralax Powder Packet) 17 gm DAILY PRN PO 02/11/17 02:30 03/13/17 02:29 Ondansetron HCl (Zofran Inj) 4 mg Q6H PRN IV 02/11/17 01:45 03/13/17 01:44 02/11/17 02:33 4 MG Potassium Chloride/Sodium Chloride 1,000 ml @ 125 mls/hr Q8H IV 02/11/17 03:00 03/13/17 02:59 02/11/17 03:15 125 MLS/HR Morphine Sulfate (MoRPHine SULFATE INJ) 4 mg Q4H PRN IV 02/11/17 01:45 02/25/17 01:44 02/11/17 02:33 4 MG Tamsulosin HCl (Flomax Cap) 0.4 mg DAILY PO 02/11/17 09:00 03/13/17 08:59 Labs were reviewed and are within normal limits unless listed below. Labs are available in the chart and at [facility] Problem List Medical Problems: (1) Encounter for smoking cessation counseling Status: Acute (2) Flank pain Status: Acute (3) Hypothyroidism Status: Chronic (4) Left ureteral calculus Status: Acute (5) Renal colic on left side Status: Acute (6) Renal colic on left side Status: Acute (7) Ureteral stone with hydronephrosis Status: Acute (8) Ureterolithiasis Status: Acute Past History hypothyroidism, kidney stones Family History FH: cancer FH: diabetes mellitus FH: heart disease FH: hypertension Social History Marital status: single Housing status: lives with family Occupation status: unemployed History of MDRO No Allergies Coded Allergies: No Known Allergies (Unverified , 02/10/17) Medications Home Medications: Home Meds and Scripts Medications Dose Route/Sig Max Daily Dose Days Date Category Ultram (Tramadol HCl) 50 Mg Tab 50 Mg PO Q8H PRN 02/10/17 Reported Zofran Odt (Ondansetron HCl) 4 Mg Tab 4 Mg SL Q6H PRN 02/10/17 Reported Oxycodone HCl 5 Mg Tab 5 Mg PO Q6 PRN 02/01/17 Reported Tamsulosin HCl 0.4 Mg Cap 0.4 Mg PO DAILY 02/01/17 Reported Levothyroxine Sodium 25 Mcg Tab 25 Mcg PO DAILY 01/02/15 Reported Inpatient Medications: Current Inpatient Medications Medications (Trade) Dose Ordered Sig/Dashawn Route Start Time Stop Time Status Last Admin Dose Admin Acetaminophen (Tylenol Tab) 650 mg Q4H PRN PO 02/11/17 01:45 03/13/17 01:44 Al Hydrox/Mg Hydrox/Simethicone (Maalox Max Susp) 15 ml Q4H PRN PO 02/11/17 01:45 03/13/17 01:44 Magnesium Hydroxide (Milk Of Magnesia Susp) 30 ml Q6H PRN PO 02/11/17 01:45 03/13/17 01:44 Polyethylene (Miralax Powder Packet) 17 gm DAILY PRN PO 02/11/17 02:30 03/13/17 02:29 Ondansetron HCl (Zofran Inj) 4 mg Q6H PRN IV 02/11/17 01:45 03/13/17 01:44 02/11/17 02:33 4 MG Potassium Chloride/Sodium Chloride 1,000 ml @ 125 mls/hr Q8H IV 02/11/17 03:00 03/13/17 02:59 02/11/17 03:15 125 MLS/HR Morphine Sulfate (MoRPHine SULFATE INJ) 4 mg Q4H PRN IV 02/11/17 01:45 02/25/17 01:44 02/11/17 02:33 4 MG Tamsulosin HCl (Flomax Cap) 0.4 mg DAILY PO 02/11/17 09:00 03/13/17 08:59 Review of Systems Review of Systems Constitutional: No fever, No chills Eyes: No blurred vision Neurological: No dizzy Endocrine: No excessive thirst Gastrointestinal: + see HPI, + nausea Cardiovascular: No heart murmur, No chest pain Respiratory: No shortness of breath, No wheezing Skin: No rash Musculoskeletal: No joint pain Blood / Lymphatic: No bleed easily Ears / Nose / Throat: No hearing loss Psychologic / Mental: No nervous Male : + see HPI Physical Exam Vital Signs: Vital Signs Past 12 Hours Date Time Temp Pulse Resp B/P (MAP) Pulse Ox O2 Delivery O2 Flow Rate FiO2 02/11/17 07:37 Room Air 02/11/17 06:56 36.4 62 18 131/86 (101) 96 Room Air 02/11/17 02:20 Room Air 02/11/17 02:20 Room Air 02/11/17 02:15 36.4 60 17 136/99 (111) 95 Room Air 02/11/17 02:07 37.2 62 16 139/82 95 02/11/17 00:52 37.1 67 18 131/94 93 Room Air 02/10/17 23:00 64 02/10/17 22:35 36.4 69 16 151/97 96 Room Air Physical Exam: General Appearance: WD/WN, no apparent distress Eyes: bilateral eyes normal inspection (bilateral pinpoint pupils) ENT: hearing grossly normal Neck: no JVD Respiratory/Chest: lungs clear, normal breath sounds, no respiratory distress, no accessory muscle use Cardiovascular: regular rate, rhythm, no edema, no gallop, no JVD, no murmur Gastrointestinal: Abdomen: normal abdomen Extremities: normal range of motion, non-tender Neurologic/Psychiatric: alert, normal mood/affect, oriented x 3 Skin: normal color, warm/dry, no rash Lymphatic: no adenopathy Assessment & Plan Assessment & Plan Large left distal ureteral stone and ARF KUB and renal u/s reveal large obstructing left UVJ stone. Given the size of the stone recommend proceeding with surgery as it is unlikely he will pass on his own. ESWL vs ULL- Given he is still having left sided pain will proceed with cystoscopy, left ureteroscopy, laser litho with stent placement. Discussed risks, benefits and answered all questions. Consents signed and placed on chart and operating room notified of add on. Will obtain CXR and EKG preop. Cipro 400 mg IV production supv to OR. Thanks for allowing us to participate in the care of this pt.
[2017-02-11] MEDS ORDERED: CIPROFLOXACIN 400MG / D5W IV SCH (11:00)
--- NOTE | 2017-02-11 11:59 | DIAGNOSTIC IMAGING REPORT ---
CHEST 2 VIEWS ROUTINE CLINICAL HISTORY: Preoperative chest NEPHROLITHIASIS COMPARISON STUDY: 01/18/2011 FINDINGS: The cardiac and mediastinal contours are normal. There is no evidence of focal pulmonary consolidation. There is no evidence of failure. No pleural effusions are visualized.[ Linear opacities at both lung bases are felt to be atelectatic. IMPRESSION: Subsegmental basilar atelectasis. No active disease in the chest.. Electronically signed by: Emiliano Huitron M.D. 02/11/2017 11:57 AM Dictated Date/Time: 02/11/2017 11:57 AM
[2017-02-11 12:38] LABS: BUN/CREATININE RATIO 6.4 (10-20); CALCIUM 9.1 mg/dl (8.5-10.1); CREATININE 2.3 mg/dl (0.60-1.40); POTASSIUM 4.3 mmol/L (3.5-5.1)
[2017-02-11] MEDS ORDERED: CONRAY 30% 150ML BOTTLE ONE (12:47)
[2017-02-11] MEDS ORDERED: FENTANYL CITRATE INJ 50 MCG/1 ML 2 ML VIAL ONE (12:56)
[2017-02-11] MEDS ORDERED: PROPOFOL IV EMULSION 10 MG/ML 20 ML VIAL IV ONE (12:56)
[2017-02-11] MEDS ORDERED: LIDOCAINE HCL 2% 2 ML VIAL (20MG/ML) ONE (12:56)
[2017-02-11] MEDS ORDERED: DEXAMETHASONE SOD INJ 4 MG/ML VIAL ONE (12:56)
[2017-02-11] MEDS ORDERED: MIDAZOLAM HCL 1 MG/ML 2ML VIAL ONE (12:56)
[2017-02-11] MEDS ORDERED: ONDANSETRON INJ 2 MG/ML 2 ML VIAL ONE (12:56)
[2017-02-11] MEDS ORDERED: ATROPINE SULFATE 0.1 MG/ML 5ML SYR IV PRN (14:00)
[2017-02-11] MEDS ORDERED: EpHEDrine SULFATE INJ 50 MG/ML AMP IV PRN (14:00)
[2017-02-11] MEDS ORDERED: ONDANSETRON INJ 2 MG/ML 2 ML VIAL IV PRN (14:00)
[2017-02-11] MEDS ORDERED: FENTANYL CITRATE INJ 50 MCG/1 ML 2 ML VIAL IV PRN (14:00)
--- NOTE | 2017-02-11 14:02 | History & Physical Bridge Note ---
H&P Re-Evaluation Bridge Note: I have examined the patient, reviewed the History & Physical and in the interval since the performance of the History & Physical I have noted the following changes of clinical significance: No changes noted
--- NOTE | 2017-02-11 14:58 | [facility] Operative Report ---
Operative Report Operative Date Feb 11, 2017. Pre-Operative Diagnosis Left Ureteral Stone Post-Operative Diagnosis Same as preop Procedure(s) Performed Cystoscopy; Laser Lithotripsy Holmium, Laser ureteral Meatotomy, Stone Extraction; Placement of Left Stent ([id number]) Surgeon Dr. La Electrician Second Surgeon(s) none Estimated Blood Loss 0 ml Findings Distal left ureteral stone impacted at the UO. Specimens A. Ureteral Stone for Chemical Analysis Drains [id number] stent Anesthesia Gen Complication(s) None Disposition Recovery Room / PACU (stable) Indications Symptomatic L ureteral stone Description of Procedure Reilly Loza was admitted through the emergency room secondary to renal colic from a left distal ureteral calculus. Following urologic consultation, appropriate consents were reviewed and completed and the patient was prepared for the operating room. He received appropriate preoperative antibiotics in the form of ciprofloxacin. Adequate general anesthesia was achieved, and he was placed in dorsal lithotomy position and sterilely prepped and draped in standard fashion. I began the case by passing a 22 Chadian cystoscope with 30 lens. The urethra had no evidence of stricture disease. Prostate was moderately enlarged without obstruction. Inspection of the bladder revealed no evidence of mucosal abnormalities or tumors. Ureteral orifices were in orthotopic position, and a stone was seen protruding from the left UO. Following this inspection, my initial effort was made to deliver the stone by utilizing gentle pressure with a 6 Chadian ureteral catheter on the area of the intramural ureter immediately posterior to the stone. The stone did not pass with this attempt. I attempted to probe along size of the stone attempting to pass a wire into the ureter, however his degree of impaction would not permit a wire to pass it. After numerous attempts, I turned my attention to the stretched tissue over top of the stone. Utilizing a 400 laser, I was able to incise the anterior portion of this ureteral orifice creating a ureteral meatotomy. This exposed a significant portion of the stone. I fragment in the stone into 2 pieces. With a flexible grasper, I was able to grasp the stones and deliver them. I then passed a 6 [place] open-ended catheter and a sensor wire to the level of the kidney. I performed a retrograde pyelogram which revealed minimal hydronephrosis and an appropriate position of the wire within the kidney. I placed a 6 Ch[place] by 26cm double-J stent, seeing a good curl in the kidney as well as the bladder. I irrigated the stone pieces out of the bladder and passed them off of the table. I emptied the bladder and concluded the case. The patient was extubated and taken to the PACU in stable condition. I attest to the content of the Intraoperative Record and any orders documented therein. Any exceptions are noted below.
--- NOTE | 2017-02-11 15:29 | Anesthesiology Progress Note ---
Anesthesia Post Op Note Date & Time Feb 11, 2017 at 15:29 Vital Signs Pain Intensity: 0 Vital Signs Past 12 Hours Date Time Temp Pulse Resp B/P (MAP) Pulse Ox O2 Delivery O2 Flow Rate FiO2 02/11/17 15:20 65 12 /92 94 Nasal Cannula 3 02/11/17 15:10 67 12 117/92 96 Oxymask 12 02/11/17 15:00 73 15 115/87 95 Oxymask 12 02/11/17 14:54 36.1 74 16 125/90 94 Oxymask 12 02/11/17 12:03 36.4 63 18 153/95 (114) 95 Room Air 02/11/17 07:37 Room Air 02/11/17 06:56 36.4 62 18 131/86 (101) 96 Room Air Notes Mental Status: alert / awake / arousable, participated in evaluation Pt Amnestic to Procedure: Yes Nausea / Vomiting: adequately controlled Pain: adequately controlled Airway Patency, RR, SpO2: stable & adequate BP & HR: stable & adequate Hydration State: stable & adequate Anesthetic Complications: no major complications apparent
[2017-02-11] MEDS: TAMSULOSIN HCL 0.4 MG CAP PO SCH (16:52)
[2017-02-11] MEDS ORDERED: LEVOTHYROXINE SODIUM INJ 12.5 MCG in SYRINGE 0 ML IV SCH (17:00)
--- NOTE | 2017-02-11 22:04 | Family Medicine Progress Note ---
Progress Note Date of Service Feb 11, 2017. Subjective Pt evaluation today including: conversation w/ patient, physical exam, chart review, lab review, review of studies, review of inpatient medication list Pain: well tolerated pain level PO Intake: NPO prior to procedure Voiding: no voiding problems Patient resting comfortably, pain level is well controlled. He reports no complaints, is eager to have stone removed. Constitutional: No fever, No chills, No sweats Respiratory: No cough, No sputum, No shortness of breath Cardiovascular: No chest pain Abdomen: + pain (LLQ) Male : + urinary frequency, No dysuria All Other Systems: Reviewed and Negative Medications Current Inpatient Medications Medications (Trade) Dose Ordered Sig/Dashawn Route Start Time Stop Time Status Last Admin Dose Admin Acetaminophen (Tylenol Tab) 650 mg Q4H PRN PO 02/11/17 01:45 03/13/17 01:44 Al Hydrox/Mg Hydrox/Simethicone (Maalox Max Susp) 15 ml Q4H PRN PO 02/11/17 01:45 03/13/17 01:44 Magnesium Hydroxide (Milk Of Magnesia Susp) 30 ml Q6H PRN PO 02/11/17 01:45 03/13/17 01:44 Polyethylene (Miralax Powder Packet) 17 gm DAILY PRN PO 02/11/17 02:30 03/13/17 02:29 Ondansetron HCl (Zofran Inj) 4 mg Q6H PRN IV 02/11/17 01:45 03/13/17 01:44 02/11/17 10:35 4 MG Potassium Chloride/Sodium Chloride 1,000 ml @ 125 mls/hr Q8H IV 02/11/17 03:00 03/13/17 02:59 02/11/17 18:38 125 MLS/HR Morphine Sulfate (MoRPHine SULFATE INJ) 4 mg Q4H PRN IV 02/11/17 01:45 02/25/17 01:44 02/11/17 10:36 4 MG Tamsulosin HCl (Flomax Cap) 0.4 mg DAILY PO 02/11/17 09:00 03/13/17 08:59 02/11/17 16:52 0.4 MG Ciprofloxacin/ Dextrose 400 mg/ Prmx 200 ml @ 100 mls/hr PREOP IV 02/11/17 11:00 02/11/17 23:59 02/11/17 14:05 100 MLS/HR Levothyroxine Sodium (Synthroid Tab) 25 mcg DAILY PO 02/12/17 09:00 03/14/17 08:59 Levothyroxine Sodium 12.5 mcg/ Syringe 0.625 ml @ 2 mls/min TODAY@1700 IV 02/11/17 17:00 02/11/17 23:59 02/11/17 17:33 2 MLS/MIN Objective Vital Signs Date Time Temp Pulse Resp B/P (MAP) Pulse Ox O2 Delivery O2 Flow Rate FiO2 02/11/17 19:28 Room Air 02/11/17 18:00 36.5 66 16 137/97 (110) 96 Room Air 2.0 02/11/17 17:01 36.4 61 16 147/94 (111) 95 Nasal Cannula 2.0 02/11/17 16:33 36.3 62 16 147/93 (111) 95 Nasal Cannula 2.0 02/11/17 16:19 93 Nasal Cannula 3.0 02/11/17 16:16 36.4 66 14 147/94 (111) 93 Nasal Cannula 3.0 02/11/17 16:15 93 Nasal Cannula 3.0 02/11/17 15:49 62 12 02/11/17 15:49 62 12 95 02/11/17 15:46 139/97 02/11/17 15:44 63 13 95 02/11/17 15:44 63 13 02/11/17 15:41 128/98 02/11/17 15:40 36.4 66 15 128/98 95 Nasal Cannula 3 02/11/17 15:40 141/98 02/11/17 15:39 67 16 02/11/17 15:39 67 16 95 02/11/17 15:36 127/102 02/11/17 15:34 66 11 94 02/11/17 15:34 66 11 02/11/17 15:31 127/88 02/11/17 15:30 63 12 127/88 95 Nasal Cannula 3 02/11/17 15:29 69 10 02/11/17 15:29 68 10 94 02/11/17 15:28 119/89 02/11/17 15:26 136/96 02/11/17 15:24 69 15 95 02/11/17 15:24 66 15 02/11/17 15:21 139/90 02/11/17 15:20 65 12 139/90 94 Nasal Cannula 3 02/11/17 15:19 67 12 02/11/17 15:19 65 12 93 02/11/17 15:16 125/89 02/11/17 15:14 70 12 96 02/11/17 15:14 71 12 02/11/17 15:11 117/92 02/11/17 15:10 67 12 117/92 96 Oxymask 12 02/11/17 15:09 71 14 02/11/17 15:09 73 14 94 02/11/17 15:06 120/91 02/11/17 15:04 71 21 95 02/11/17 15:04 71 21 02/11/17 15:01 115/87 02/11/17 15:00 73 15 115/87 95 Oxymask 12 02/11/17 14:59 64 12 93 02/11/17 14:59 64 12 02/11/17 14:56 125/90 02/11/17 14:54 36.1 74 16 125/90 94 Oxymask 12 02/11/17 12:03 36.4 63 18 153/95 (114) 95 Room Air 02/11/17 07:37 Room Air 02/11/17 06:56 36.4 62 18 131/86 (101) 96 Room Air 02/11/17 02:20 Room Air 02/11/17 02:20 Room Air 02/11/17 02:15 36.4 60 17 136/99 (111) 95 Room Air 02/11/17 02:07 37.2 62 16 139/82 95 02/11/17 00:52 37.1 67 18 131/94 93 Room Air 02/10/17 23:00 64 02/10/17 22:35 36.4 69 16 151/97 96 Room Air Physical Exam General Appearance: WD/WN, no apparent distress Eyes: normal inspection, EOMI ENT: hearing grossly normal, pharynx normal Neck: supple, thyroid normal, no JVD Respiratory/Chest: chest non-tender, lungs clear, normal breath sounds, no respiratory distress, no accessory muscle use Cardiovascular: regular rate, rhythm, no edema, no murmur Abdomen: normal bowel sounds, soft, + tenderness (LLQ, no guarding or rigidity) Extremities: no pedal edema, no calf tenderness Neurologic/Psychiatric: no motor/sensory deficits, alert, normal mood/affect, oriented x 3 Skin: normal color, warm/dry, no rash Laboratory Results 02/10/17 23:00 Red Blood Count 3.98, Mean Corpuscular Volume 101.5, Mean Corpuscular Hemoglobin 34.2, Mean Corpuscular Hemoglobin Concent 33.7, Mean Platelet Volume 9.2, Neutrophils (%) (Auto) 78.8, Lymphocytes (%) (Auto) 13.1, Monocytes (%) ( Auto) 6.1, Eosinophils (%) (Auto) 1.7, Basophils (%) (Auto) 0.2, Neutrophils # ( Auto) 7.40, Lymphocytes # (Auto) 1.23, Monocytes # (Auto) 0.57, Eosinophils # ( Auto) 0.16, Basophils # (Auto) 0.02 02/11/17 12:07 Test 02/10/17 22:50 02/10/17 23:00 02/11/17 12:07 Urine Color YELLOW Urine Appearance CLEAR (CLEAR) Urine pH 7.0 (4.5-7.5) Urine Specific [place] 1.023 (1.000-1.030) Urine Protein NEG (NEG) Urine Glucose (UA) NEG (NEG) Urine Ketones NEG (NEG) Urine Occult Blood 2+ (NEG) Urine Nitrite NEG (NEG) Urine Bilirubin NEG (NEG) Urine Urobilinogen NEG (NEG) Urine Leukocyte Esterase NEG (NEG) Urine WBC (Auto) 1-5 /hpf (0-5) Urine RBC (Auto) 10-30 /hpf (0-4) Urine Hyaline Casts (Auto) 1-5 /lpf (0-5) Urine Epithelial Cells (Auto) 20-30 /lpf (0-5) Urine Bacteria (Auto) NEG (NEG) White Blood Count 9.39 K/uL (4.8-10.8) Red Blood Count 3.98 M/uL (4.7-6.1) Hemoglobin 13.6 g/dL (14.0-18.0) Hematocrit 40.4 % (42-52) Mean Corpuscular Volume 101.5 fL (80-100) Mean Corpuscular Hemoglobin 34.2 pg (25-34) Mean Corpuscular Hemoglobin Concent 33.7 g/dl (32-36) Platelet Count 152 K/uL (130-400) Mean Platelet Volume 9.2 fL (7.4-10.4) Neutrophils (%) (Auto) 78.8 % Lymphocytes (%) (Auto) 13.1 % Monocytes (%) (Auto) 6.1 % Eosinophils (%) (Auto) 1.7 % Basophils (%) (Auto) 0.2 % Neutrophils # (Auto) 7.40 K/uL (1.4-6.5) Lymphocytes # (Auto) 1.23 K/uL (1.2-3.4) Monocytes # (Auto) 0.57 K/uL (0.11-0.59) Eosinophils # (Auto) 0.16 K/uL (0-0.5) Basophils # (Auto) 0.02 K/uL (0-0.2) RDW Standard Deviation 49.6 fL (36.4-46.3) RDW Coefficient of Variation 13.2 % (11.5-14.5) Immature Granulocyte % (Auto) 0.1 % Immature Granulocyte # (Auto) 0.01 K/uL (0.00-0.02) Total Bilirubin 0.8 mg/dl (0.2-1) Aspartate Amino Transf (AST/SGOT) 40 U/L (15-37) Alanine Aminotransferase (ALT/SGPT) 39 U/L (12-78) Alkaline Phosphatase 56 U/L (45-117) Total Protein 8.0 gm/dl (6.4-8.2) Albumin 4.2 gm/dl (3.4-5.0) Globulin 3.8 gm/dl (2.5-4.0) Albumin/Globulin Ratio 1.1 (0.9-2) Anion Gap 7.0 mmol/L (3-11) Est Creatinine Clear Calc Drug Dose 47.5 ml/min Estimated GFR () 37.8 Estimated GFR (Non- 32.6 BUN/Creatinine Ratio 6.4 (10-20) Calcium Level 9.1 mg/dl (8.5-10.1) Thyroid Stimulating Hormone (TSH) 295.000 uIu/ml (0.300-4.500) Assessment and Plan 46 year old male with a history of hypothyroidism and renal stones admitted with renal colic and JEFF Left renal tract stone with hydronephrosis - Urology to remove stone today, 1.1 dm at left UVJ - NSS 125 ml/hr - Morphine 4 mg q4h prn - Cr. 2.1 and 2.3 today (baseline 1.1) Hypothyroidism - Patient states that he does not have insurance and as a result has not been taking his thyroid medication because he cannot afford the monthly testing. - CM discussed [facility] and getting help to sign up for medical assistance. - TSH 295 - Started on levothyroxine, 12.5mcg bolus today and to start on 25 mcg daily tomorrow Acute Kidney Injury - Cr 2.1, 2.3; baseline 1.0 - Dehydration vs obstructive - Likely obstructive as no improvement after 12 hours of fluid challenge DVT Prophylaxis - SCD Knee, EUNICE Hose - Encourage ambulation; no indication for pharmacological prophylaxis Code Status - Level I Full Code Disposition - Med/Surg - Discuss insurance situation with CM - Potentially home tomorrow. Resident Tracking Resident Involvement: Resident Care Provided Care Provided: Adult Hospital Medicine
--- NOTE | 2017-02-11 22:34 | EMERGENCY ROOM VISIT NOTE ---
History First contact with patient: 22:47 Chief Complaint: KIDNEY STONE Stated Complaint: ACUTE KIDNEY FAILURE;HYDRONEPHROSIS History of Present Illness The patient is a 46 year old male who presents to the Emergency Room with complaints of left flank pain for the past 2 weeks. The patient has been seen twice in the emergency department with this complaint. On initial visit he was found to have a 4 mm mid left ureteral calculi. The patient does not have insurance and preferred to go home with medication as treatment. He ultimately return back to the emergency department a few days ago, where second CT scan did show some advancement into the distal ureter. The patient now returns as his pain is not controlled at home. He has not had fever or chills. He has been eating and drinking as normal. He rates the pain a constant 7/10 with episodes of worsening pain. Review of Systems More than 10 systems were reviewed and otherwise negative with the exception of history of present illness. Past Medical/Surgical History Medical Problems: (1) Acute kidney failure (2) Back pain (3) Forearm laceration (4) Hydronephrosis (5) Hypothyroidism (6) Pain, dental (7) Renal calculus, left (8) Ureteral colic Family History FH: cancer FH: diabetes mellitus FH: heart disease FH: hypertension Social History Smoking Status: Never Smoker Smokeless Tobacco Use: Yes (Chewing tobacco daily) Alcohol Use: none Drug Use: none Marital Status: single Occupation Status: unemployed Current/Historical Medications Scheduled Levothyroxine Sodium (Levothyroxine Sodium), 25 MCG PO DAILY Tamsulosin HCl (Tamsulosin HCl), 0.4 MG PO DAILY Scheduled PRN Ondasetron Odt (Zofran Odt), 4 MG SL Q6H PRN for Nausea or Vomiting Oxycodone HCl (Oxycodone HCl), 5 MG PO Q6 PRN for Pain Tramadol (Ultram), 50 MG PO Q8H PRN for Pain Physical Exam Vital Signs Date Time Temp Pulse Resp B/P (MAP) Pulse Ox O2 Delivery O2 Flow Rate FiO2 02/11/17 02:20 Room Air 02/11/17 02:20 Room Air 02/11/17 02:15 36.4 60 17 136/99 (111) 95 Room Air 02/11/17 02:07 37.2 62 16 139/82 95 02/11/17 00:52 37.1 67 18 131/94 93 Room Air 02/10/17 23:00 64 02/10/17 22:35 36.4 69 16 151/97 96 Room Air Physical Exam VITALS: Vitals are noted on the nurse's note and reviewed by myself. Vital signs stable. GENERAL: Well-developed, well-nourished, white male who appears moderately uncomfortable secondary to his stated complaint. HEART: Regular rate and rhythm without murmurs gallops or rubs. LUNGS: Clear to auscultation bilaterally without wheezes, rales or rhonchi. No retractions or accessory muscle use. ABDOMEN: Positive normal bowel sounds x 4. Soft, nontender, without masses or organomegaly. No guarding or rebound tenderness. No CVA tenderness. MUSCULOSKELETAL: No muscle atrophy, erythema, or edema noted. Full range of motion without joint tenderness in all extremities. Medical Decision & Procedures ER Provider Diagnostic Interpretation: KUB CLINICAL HISTORY: 46 years-old Male presenting with Left ureteral calculi on previous CTs. TECHNIQUE: Single supine view of the abdomen was obtained. COMPARISON: 03/13/2016. FINDINGS: Previously noted calculus in the region of the distal left ureter remains apparent in the region of the left ureterovesical junction. This has not changed in location. No calcification projects over the renal shadows allowing for mild stool burden in the right colon. No gross pneumoperitoneum. Osseous structures normal. IMPRESSION: 1. Stable location of the distal left ureteral calculus at the left UVJ. EXAMINATION: RENAL ULTRASOUND CLINICAL HISTORY: Left ureteral calculus. Evaluate for hydronephrosis. COMPARISON STUDY: CT scan dated 02/01/2017, renal ultrasound dated 03/13/2016 FINDINGS: The right kidney measures 10.6 cm. The left kidney measures 11.5 cm. There is left-sided hydronephrosis. The left ureter is dilated measuring up to 7 mm. There is a suspected calculus at the level the left ureterovesical junction. This measures 1 cm. The left ureteral jet was not visualized. IMPRESSION : 1 cm calculus at the level of the left ureterovesical junction with secondary left-sided hydroureteronephrosis. Laboratory Results 02/10/17 23:00 Red Blood Count 3.98, Mean Corpuscular Volume 101.5, Mean Corpuscular Hemoglobin 34.2, Mean Corpuscular Hemoglobin Concent 33.7, Mean Platelet Volume 9.2, Neutrophils (%) (Auto) 78.8, Lymphocytes (%) (Auto) 13.1, Monocytes (%) ( Auto) 6.1, Eosinophils (%) (Auto) 1.7, Basophils (%) (Auto) 0.2, Neutrophils # ( Auto) 7.40, Lymphocytes # (Auto) 1.23, Monocytes # (Auto) 0.57, Eosinophils # ( Auto) 0.16, Basophils # (Auto) 0.02 Test 02/10/17 22:50 02/10/17 23:00 Urine Color YELLOW Urine Appearance CLEAR (CLEAR) Urine pH 7.0 (4.5-7.5) Urine Specific [place] 1.023 (1.000-1.030) Urine Protein NEG (NEG) Urine Glucose (UA) NEG (NEG) Urine Ketones NEG (NEG) Urine Occult Blood 2+ (NEG) Urine Nitrite NEG (NEG) Urine Bilirubin NEG (NEG) Urine Urobilinogen NEG (NEG) Urine Leukocyte Esterase NEG (NEG) Urine WBC (Auto) 1-5 /hpf (0-5) Urine RBC (Auto) 10-30 /hpf (0-4) Urine Hyaline Casts (Auto) 1-5 /lpf (0-5) Urine Epithelial Cells (Auto) 20-30 /lpf (0-5) Urine Bacteria (Auto) NEG (NEG) White Blood Count 9.39 K/uL (4.8-10.8) Red Blood Count 3.98 M/uL (4.7-6.1) Hemoglobin 13.6 g/dL (14.0-18.0) Hematocrit 40.4 % (42-52) Mean Corpuscular Volume 101.5 fL (80-100) Mean Corpuscular Hemoglobin 34.2 pg (25-34) Mean Corpuscular Hemoglobin Concent 33.7 g/dl (32-36) Platelet Count 152 K/uL (130-400) Mean Platelet Volume 9.2 fL (7.4-10.4) Neutrophils (%) (Auto) 78.8 % Lymphocytes (%) (Auto) 13.1 % Monocytes (%) (Auto) 6.1 % Eosinophils (%) (Auto) 1.7 % Basophils (%) (Auto) 0.2 % Neutrophils # (Auto) 7.40 K/uL (1.4-6.5) Lymphocytes # (Auto) 1.23 K/uL (1.2-3.4) Monocytes # (Auto) 0.57 K/uL (0.11-0.59) Eosinophils # (Auto) 0.16 K/uL (0-0.5) Basophils # (Auto) 0.02 K/uL (0-0.2) RDW Standard Deviation 49.6 fL (36.4-46.3) RDW Coefficient of Variation 13.2 % (11.5-14.5) Immature Granulocyte % (Auto) 0.1 % Immature Granulocyte # (Auto) 0.01 K/uL (0.00-0.02) Total Bilirubin 0.8 mg/dl (0.2-1) Aspartate Amino Transf (AST/SGOT) 40 U/L (15-37) Alanine Aminotransferase (ALT/SGPT) 39 U/L (12-78) Alkaline Phosphatase 56 U/L (45-117) Total Protein 8.0 gm/dl (6.4-8.2) Albumin 4.2 gm/dl (3.4-5.0) Globulin 3.8 gm/dl (2.5-4.0) Albumin/Globulin Ratio 1.1 (0.9-2) Medications Administered Medications (Trade) Dose Ordered Sig/Dashawn Route Start Time Stop Time Status Last Admin Dose Admin Morphine Sulfate (MoRPHine SULFATE INJ) 8 mg NOW STAT IV 02/10/17 22:53 02/10/17 22:55 DC 02/10/17 23:10 8 MG Ondansetron HCl (Zofran Inj) 4 mg NOW STAT IV 02/10/17 22:53 02/10/17 22:55 DC 02/10/17 23:09 4 MG Ondansetron HCl (Zofran Inj) 4 mg Q6H PRN IV 02/11/17 01:45 03/13/17 01:44 02/11/17 10:35 4 MG Sodium Chloride 1,000 ml @ 999 mls/hr Q1H1M STAT IV 02/11/17 02:01 02/11/17 03:01 DC 02/11/17 02:02 999 MLS/HR Morphine Sulfate (MoRPHine SULFATE INJ) 4 mg Q4H PRN IV 02/11/17 01:45 02/25/17 01:44 02/11/17 10:36 4 MG ED Course Physical exam and history were performed. Nursing notes, EMR, and Medication List were personally reviewed. Patient appears to have an existing diagnosis of left ureteral calculi. On examination he appears uncomfortable. He has had 2 CT scans in the past 2 weeks for this. KUB and ultrasound were performed. IV access was established and labs were obtained. The patient was hydrated and medicated as above. The patient's blood work is as above and was reviewed. He does not have a significantly elevated white blood cell count or gross anemia. His renal function has worsened, as his creatinine has gone from 1.7 to 2.1. Urinalysis without obvious signs of infection with culture pending. KUB shows stable position in the distal ureter of the stone. Ultrasound demonstrates what appears to be at least a 1.0 cm ureteral calculi which is significantly larger than the presumed 4 mm stone on previous CT scan. This is likely why the patient has been unable to pass the stone at home. Overall the patient does not appear well for discharge home. He seems to have a rather large obstructing stone with worsening renal function. The case was discussed with the on-call hospitalist who agreed to evaluate the patient here in the department. Please see their dictation for further patient course, plan, and disposition. The chart was completed utilizing [employer] Speech Voice Recognition Software. Grammatical errors, random word insertions, pronoun errors, and incomplete sentences are an occasional consequence of this system due to software limitations, ambient noise, and hardware issues. Any formal questions or concerns about the content, text, or information contained within the body of this dictation should be directly addressed to the provider for clarification. . Medical Decision Differential diagnosis: Etiologies such as renal colic, appendicitis, diverticulitis, mesenteric ischemia, aortic pathology, infections, inflammatory bowel disease, PUD, biliary pathology, UTI, as well as others were entertained. Impression Primary Impression: Renal calculus, left Additional Impression: Acute kidney failure Departure Information Dispostion Admitted as an inpatient Condition GOOD Referrals Bello Marks M.D. (PCP) Forms HOME CARE DOCUMENTATION FORM, IMPORTANT VISIT INFORMATION Patient Instructions [facility] Problem Qualifiers
[2017-02-12] MEDS: NSS + 20MEQ KCL 1000ML 1,000 ML IV SCH (02:17)
[2017-02-12 03:09] VITALS: BP 122/79; PULSE 74; TEMP 36.5; O2SAT 93
[2017-02-12 05:53] LABS: MEAN CELL VOLUME 102.5 fL (80-100); MEAN CORPUSCULAR HEMOGLOBIN 34.9 pg (25-34); MEAN CORPUSCULAR HGB CONC 34.1 g/dl (32-36); MEAN PLATELET VOLUME 9.5 fL (7.4-10.4); PLATELET COUNT 148 K/uL (130-400); RED BLOOD COUNT 3.61 M/uL (4.7-6.1); WHITE BLOOD COUNT 11.34 K/uL (4.8-10.8)
[2017-02-12] MEDS ORDERED: CIPROFLOXACIN 400MG / 200ML D5W IV ONE (06:00)
[2017-02-12 06:16] LABS: BUN/CREATININE RATIO 7.3 (10-20); CALCIUM 8.8 mg/dl (8.5-10.1); CREATININE 2.1 mg/dl (0.60-1.40); POTASSIUM 4.5 mmol/L (3.5-5.1)
[2017-02-12 07:01] VITALS: BP 136/82; PULSE 74; TEMP 36.6; O2SAT 93
[2017-02-12] MEDS: TAMSULOSIN HCL 0.4 MG CAP PO SCH (07:29)
[2017-02-12] MEDS ORDERED: LEVOTHYROXINE 25 MCG TAB PO SCH (09:00)
--- NOTE | 2017-02-12 09:54 | Discharge Instructions ---
Discharge Instructions Date of Service Feb 12, 2017. Admission Reason for Admission: Acute Kidney Failure;Hydronephrosis Discharge Discharge Diagnosis / Problem: Renal calculus with resulting JEFF and hydronephrosis Discharge Goals Goal(s): Decrease discomfort, Improve disease control Activity Recommendations Activity Limitations: per Instructions/Follow-up section . Instructions / Follow-Up Instructions / Follow-Up During this visit, you were admitted for a kidney stone, acute kidney failure, hydronephrosis, and hypothyroidism. For the kidney stone, urology performed a procedure to remove the stone, and this was successful. You may experience some burning on urination and minimal blood in your urine for a few days. This is normal. You will be seen by urology for a follow up appointment. Please give them a call to inquire about your follow up appointment. Address: [address] [place] [address] , [place] [address] You should also be seen by a primary care physician (your regular PCP or [facility]) to have blood work for your acute kidney failure. The kidney failure and backup of fluid into your kidney (hydronephrosis) were likely caused by the stone and should improve but we need to have labwork done to confirm this. You were also found to be hypothyroid, a result of non-compliance with medications. We have partnered you up with [facility] and medical assistance to help you get your pills and required labwork done at a low cost to allow you to better manage your condition. Follow up with a primary care provider for both your kidneys and your hypothyroidism within 1 week of hospital discharge. Please return to the ED if you notice excessive blood in your urine, severe intractable pain, new onset of severe swelling in your legs, severe nausea or vomiting, or any deterioration of your current state. Current Hospital Diet Patient's current hospital diet: Regular Diet Discharge Diet Recommended Diet: Regular Diet Procedures Procedures Performed: Cystoscopy; Laser Lithotripsy Holmium, Laser ureteral Meatotomy, Stone Extraction; Placement of Left Stent ([id number]) Pending Studies Studies pending at discharge: yes List of pending studies: Urine culture, UA negaitve for infectious markers Medical Emergencies . Who to Call and When: Medical Emergencies: If at any time you feel your situation is an emergency, please call 911 immediately. . Non-Emergent Contact Non-Emergency issues call your: Primary Care Provider . . "Provider Documentation" section prepared by Laurie Cornejo. . VTE Core Measure Inpt VTE Proph given/why not?: Lashanda Brooks, NENITA's
[2017-02-12 11:32] VITALS: BP 136/82; PULSE 74; TEMP 36.6; O2SAT 93
--- NOTE | 2017-02-12 11:48 | Progress Note ---
Subjective Date of Service: Feb 12, 2017. Subjective Pt evaluation today including: conversation w/ patient, physical exam, lab review doing well after stone surgery yesterday - mild stent discomfort, but tolerating it well - anxious to go home Problem List Medical Problems: (1) Encounter for smoking cessation counseling Status: Acute (2) Flank pain Status: Acute (3) Hypothyroidism Status: Chronic (4) Left ureteral calculus Status: Acute (5) Renal colic on left side Status: Acute (6) Renal colic on left side Status: Acute (7) Ureteral stone with hydronephrosis Status: Acute (8) Ureterolithiasis Status: Acute Review of Systems Constitutional: No see HPI, No fever, No chills, No sweats, No weight loss, No weakness, No fatigue, No problem reported Abdomen: No see HPI, No pain, No nausea, No vomiting, No diarrhea, No constipation, No GI bleeding, No problem reported Musculoskeletal: No see HPI, No joint pain, No muscle pain, No swelling, No calf pain, No problem reported Male : No see HPI, No dysuria, No urinary frequency, No incontinence, No nocturia more than once/night, No slowing stream, No hematuria, No sexual dysfunction, No problem reported Objective Vital Signs Date Time Temp Pulse Resp B/P (MAP) Pulse Ox O2 Delivery O2 Flow Rate FiO2 02/12/17 11:32 36.6 74 18 93 Room Air 02/12/17 07:25 Room Air 02/12/17 07:01 36.6 74 18 136/82 (100) 93 Room Air 02/12/17 03:09 36.5 74 16 122/79 (93) 93 Room Air 02/11/17 23:45 Room Air 02/11/17 23:01 37.0 78 16 154/97 (116) 93 Room Air 02/11/17 19:28 Room Air 02/11/17 18:00 36.5 66 16 137/97 (110) 96 Room Air 2.0 02/11/17 17:01 36.4 61 16 147/94 (111) 95 Nasal Cannula 2.0 02/11/17 16:33 36.3 62 16 147/93 (111) 95 Nasal Cannula 2.0 02/11/17 16:19 93 Nasal Cannula 3.0 02/11/17 16:16 36.4 66 14 147/94 (111) 93 Nasal Cannula 3.0 02/11/17 16:15 93 Nasal Cannula 3.0 02/11/17 15:49 62 12 02/11/17 15:49 62 12 95 02/11/17 15:46 139/97 02/11/17 15:44 63 13 95 02/11/17 15:44 63 13 02/11/17 15:41 128/98 02/11/17 15:40 36.4 66 15 128/98 95 Nasal Cannula 3 02/11/17 15:40 141/98 02/11/17 15:39 67 16 02/11/17 15:39 67 16 95 02/11/17 15:36 127/102 02/11/17 15:34 66 11 94 02/11/17 15:34 66 11 02/11/17 15:31 127/88 02/11/17 15:30 63 12 127/88 95 Nasal Cannula 3 02/11/17 15:29 69 10 02/11/17 15:29 68 10 94 02/11/17 15:28 119/89 02/11/17 15:26 136/96 02/11/17 15:24 69 15 95 02/11/17 15:24 66 15 02/11/17 15:21 139/90 02/11/17 15:20 65 12 139/90 94 Nasal Cannula 3 02/11/17 15:19 67 12 02/11/17 15:19 65 12 93 02/11/17 15:16 125/89 02/11/17 15:14 70 12 96 02/11/17 15:14 71 12 02/11/17 15:11 117/92 02/11/17 15:10 67 12 117/92 96 Oxymask 12 02/11/17 15:09 71 14 02/11/17 15:09 73 14 94 02/11/17 15:06 120/91 02/11/17 15:04 71 21 95 02/11/17 15:04 71 21 02/11/17 15:01 115/87 02/11/17 15:00 73 15 115/87 95 Oxymask 12 02/11/17 14:59 64 12 93 02/11/17 14:59 64 12 02/11/17 14:56 125/90 02/11/17 14:54 36.1 74 16 125/90 94 Oxymask 12 02/11/17 12:03 36.4 63 18 153/95 (114) 95 Room Air Physical Exam General Appearance: WD/WN, no apparent distress ENT: hearing grossly normal Respiratory/Chest: normal breath sounds, no respiratory distress Abdomen: non tender, soft Neurologic/Psychiatric: alert, normal mood/affect, oriented x 3 Laboratory Results Last 24 Hours Test 02/11/17 12:07 02/12/17 05:15 Sodium Level 141 mmol/L 140 mmol/L Potassium Level 4.3 mmol/L 4.5 mmol/L Chloride Level 107 mmol/L 107 mmol/L Carbon Dioxide Level 27 mmol/L 25 mmol/L Anion Gap 7.0 mmol/L 8.0 mmol/L Blood Urea Nitrogen 15 mg/dl 15 mg/dl Creatinine 2.30 mg/dl 2.10 mg/dl Est Creatinine Clear Calc Drug Dose 47.5 ml/min 52.0 ml/min Estimated GFR () 37.8 42.2 Estimated GFR (Non- 32.6 36.4 BUN/Creatinine Ratio 6.4 7.3 Random Glucose 91 mg/dl 113 mg/dl Calcium Level 9.1 mg/dl 8.8 mg/dl Thyroid Stimulating Hormone (TSH) 295.000 uIu/ml White Blood Count 11.34 K/uL Red Blood Count 3.61 M/uL Hemoglobin 12.6 g/dL Hematocrit 37.0 % Mean Corpuscular Volume 102.5 fL Mean Corpuscular Hemoglobin 34.9 pg Mean Corpuscular Hemoglobin Concent 34.1 g/dl RDW Standard Deviation 48.5 fL RDW Coefficient of Variation 12.9 % Platelet Count 148 K/uL Mean Platelet Volume 9.5 fL Assessment and Plan POD#1 s/p L stone extraction/stent - doing well - home today - f/u as outpt for stent d/c
--- NOTE | 2017-02-12 22:35 | Discharge Summary ---
Discharge Summary Date of Service Feb 12, 2017. Discharge Summary Admission Date: Feb 11, 2017 at 02:30 Discharge Date: Feb 12, 2017 Discharge Disposition: Home Principal Diagnosis: Renal calculus Problems/Secondary Diagnoses: (1) Hypothyroidism Status: Chronic (2) Acute kidney injury Procedures: cystoscopy, left ureteroscopy, laser litho with stent placement. KUB CLINICAL HISTORY: 46 years-old Male presenting with Left ureteral calculi on previous CTs. TECHNIQUE: Single supine view of the abdomen was obtained. COMPARISON: 03/13/2016. FINDINGS: Previously noted calculus in the region of the distal left ureter remains apparent in the region of the left ureterovesical junction. This has not changed in location. No calcification projects over the renal shadows allowing for mild stool burden in the right colon. No gross pneumoperitoneum. Osseous structures normal. IMPRESSION: 1. Stable location of the distal left ureteral calculus at the left UVJ. EXAMINATION: RENAL ULTRASOUND CLINICAL HISTORY: Left ureteral calculus. Evaluate for hydronephrosis. COMPARISON STUDY: CT scan dated 02/01/2017, renal ultrasound dated 03/13/2016 FINDINGS: The right kidney measures 10.6 cm. The left kidney measures 11.5 cm. There is left-sided hydronephrosis. The left ureter is dilated measuring up to 7 mm. There is a suspected calculus at the level the left ureterovesical junction. This measures 1 cm. The left ureteral jet was not visualized. IMPRESSION : 1 cm calculus at the level of the left ureterovesical junction with secondary left-sided hydroureteronephrosis. Consultations: Urology Medication Reconciliation Continued Medications: Levothyroxine Sodium (Levothyroxine Sodium) 25 Mcg Tab 25 MCG PO DAILY, TAB 5 Refills Ondasetron Odt (Zofran Odt) 4 Mg Tab 4 MG SL Q6H PRN for Nausea or Vomiting, #6 TAB Oxycodone HCl (Oxycodone HCl) 5 Mg Tab 5 MG PO Q6 PRN for Pain Tamsulosin HCl (Tamsulosin HCl) 0.4 Mg Cap 0.4 MG PO DAILY Tramadol (Ultram) 50 Mg Tab 50 MG PO Q8H PRN for Pain, TAB Discharge Exam ROS Constitutional: No fever, No chills, No sweats Respiratory: No cough, No sputum, No shortness of breath Cardiovascular: No chest pain Abdomen: + pain (LLQ) Male : + urinary frequency, No dysuria All Other Systems: Reviewed and Negative Physical Exam General Appearance: WD/WN, no apparent distress Eyes: normal inspection, EOMI ENT: hearing grossly normal, pharynx normal Neck: supple, thyroid normal, no JVD Respiratory/Chest: chest non-tender, lungs clear, normal breath sounds, no respiratory distress, no accessory muscle use Cardiovascular: regular rate, rhythm, no edema, no murmur Abdomen: normal bowel sounds, soft, + tenderness (LLQ, no guarding or rigidity) Extremities: no pedal edema, no calf tenderness Neurologic/Psychiatric: no motor/sensory deficits, alert, normal mood/affect, oriented x 3 Skin: normal color, warm/dry, no rash Hospital Course The patient is a pleasant 46 year old male with a history of hypothyroidism and renal stones who presented with acute abdominal pain. The patient reported having sudden onset abdominal pain, described as sharp, in the LLQ, and radiated in to the left groin and testicle. He denied dysuria or urinary frequency. Stated that his urine appeared more concentrated but not grossly bloody. He denied any accompanying back pain. No fevers, chills or sweats. He denied nausea or vomiting. This patient had a known renal stone on the left side. He presented to [facility] on 01/27 with similar pain. At that time a CT scan was done showing a 0.4 cm left ureteral stone with mild hydronephrosis. He was offered admission and evaluation but declined due to lack of insurance and was discharged with pain medication, and Flomax. He returned again on 02/01 with similar complaints and repeat CT showed migration to distal ureter. He was discharged home at that time as well. Renal ultrasound reported renal stone in the left UVJ and size was reported as 1.1 cm. He Cr was noted to be 2.1 (at his previous visits this month they were 1.7, Cr last year was 1.1). The patient also stated that he does not have insurance and as a result has not been taking his thyroid medication because he cannot afford it. Left renal tract stone with hydronephrosis - Cystoscopy; Laser Lithotripsy Holmium, Laser ureteral Meatotomy, Stone Extraction; Placement of Left Stent by urology - IVF given, pain controlled as needed - Patient symptomatically much improved post procedure - Patient to follow up with Urology in 3-5 days Hypothyroidism - Patient states that he does not have insurance and as a result has not been taking his thyroid medication because he cannot afford the monthly testing. - CM discussed [facility] and getting help to sign up for medical assistance. - TSH 295 - Started on levothyroxine, 12.5mcg bolus and 25 mcg daily Acute Kidney Injury - Cr 2.1, 2.3 prior to procedure - Cr 2.1 after procedure; baseline 1.0 - Dehydration vs obstructive - Likely obstructive as no improvement after 12 hours of fluid challenge, but not as much improvement as expected after procedure - Recommend follow up labs as outpatient Total Time Spent: Less than 30 minutes This includes examination of the patient, discharge planning, medication reconciliation, and communication with other providers. Discharge Instructions Please refer to the electronic Patient Visit Report (Discharge Instructions) for additional information. Follow-Up PCP within one week Urology in 4-5 days Additional Copies To Bello Marks M.D. Resident Tracking Resident Involvement: Resident Care Provided Care Provided: Adult [facility]
== END 2017-02-12 12:13 | disposition home or self-care (01) | DRG 660 ==
LOC: C.EDB 22:27 → ENRESERV 02-11 01:53 → C.3E 02-11 02:30
PROVIDERS: ADMIT Student in an Organized Health Care Education/Training Program; ATTEND Hospitalist
PROC: 0T778ZZ Dilation of Left Ureter, Via Natural or Artificial Opening Endoscopic (ICD-10-PCS; principal; 2017-02-11 14:00)
PROC: 0T778DZ Dilation of Left Ureter with Intraluminal Device, Via Natural or Artificial Opening Endoscopic (ICD-10-PCS; principal; 2017-02-11 14:00)
PROC: 0TC78ZZ Extirpation of Matter from Left Ureter, Via Natural or Artificial Opening Endoscopic (ICD-10-PCS; principal; 2017-02-11 14:00)
DX: N13.2 Hydronephrosis with renal and ureteral calculous obstruction (principal); N17.9 Acute kidney failure, unspecified; E03.9 Hypothyroidism, unspecified; T38.1X6A Underdosing of thyroid hormones and substitutes, initial encounter; Z91.120 Patient's intentional underdosing of medication regimen due to financial hardship; Z72.0 Tobacco use; Z79.891 Long term (current) use of opiate analgesic; Z79.899 Other long term (current) drug therapy